=== PATIENT | male | born 1955 | race Caucasian/White ===

== ENCOUNTER 2019-11-15 11:01 | Day surgery (SDC) | payer MEDICARE, SELFPAY ==
[2019-11-15] VITALS (8 sets, daily range): BP systolic 116–140; BP diastolic 69–76; PULSE 85–95; RESP 12–16; TEMP 36.6–37.1; O2SAT 98–100; BMI 33.7
--- NOTE | 2019-11-15 06:01 | ECG_ITS ---
Measurements Intervals [place] Rate: 93 P: 94 [place]: 165 QRS: -11 QRSD: 107 T: 75 QT: 349 QTc: 435 Interpretive Statements ATRIAL FLUTTER/TACHYCARDIA BORDERLINE R WAVE PROGRESSION, ANTERIOR LEADS BORDERLINE ST-T WAVE ABNORMALITY- LATERAL LEADS ABNORMAL ECG Electronically Signed On 11-15-2019 13:49:52 PHYSICAL GEOGRAPHER by Remi Jara D.O.
--- NOTE | 2019-11-15 11:15 | SUR.PREOP ---
ARRIVES TO [facility] AT 1100 FOR SCHEDULED CARDIOVERSION W/ DR. YAN. EKG COMPLETED SHOWS AFLUTTER. ORIENTED TO ROOM, PLAN OF CARE. DENIES CP OR SOB. IV STARTED, LABS SENT, VS OBTAINED, CONSENT OBTAINED, SKIN PREPPED. WILL CONTINUE TO MONITOR.
[2019-11-15 11:46] LABS: Blood Urea Nitrogen 31 mg/dL (9-20); Calcium 9.7 mg/dL (8.4-10.2); Carbon Dioxide 22 mmol/L (22-30); Chloride 93 mmol/L (98-107); Estimated Glomerular Filt Rate 34; Glucose 384 mg/dL (75-110); Magnesium 1.8 mg/dL (1.6-2.3); Potassium 4.6 mmol/L (3.4-5.0); Sodium 133 mmol/L (137-145)
--- NOTE | 2019-11-15 12:14 | WPDMODSED ---
Moderate Sedation Note-Pt Data Patient Data Diagnosis: Atrial flutter Present Complaint: Generalized fatigue Procedure to be performed/Plan: DC cardioversion Allergies Allergy/AdvReac Type Severity Reaction Status Date / Time atorvastatin Allergy Unknown muscle Verified 07/05/19 17:00 aches ezetimibe Allergy Unknown muscle Verified 07/05/19 17:00 aches simvastatin [Vytorin] Allergy Unknown muscle Verified 07/05/19 17:00 aches ticagrelor [Brilinta] Allergy Unknown sob, Verified 07/05/19 17:00 breathing diffi No Known Allergies Allergy Unverified 04/25/19 22:55 Home Medications Medication Instructions Recorded Confirmed Type allopurinol 300 mg PO DAILY 11/15/19 11/15/19 History doxycycline hyclate [Vibramycin] 100 mg PO BID 11/15/19 11/15/19 History glimepiride [Amaryl] 4 mg PO BID 11/15/19 11/15/19 History levothyroxine [Tirosint] 100 mcg PO DAILY 11/15/19 11/15/19 History metformin 1,000 mg PO BID 11/15/19 11/15/19 History metoprolol tartrate [Lopressor] 25 mg PO Q12H 11/15/19 11/15/19 History rivaroxaban [Xarelto] 20 mg PO DAILY 11/15/19 11/15/19 History Current Medications: Active Medications Sodium Chloride (Normal Saline Iv) 1,000 mls @ 30 mls/hr IV CONT .Q24H ERIC Sedation/Anesthesia: No previous sedation/anesthesia problems (including family history). [facility] Family History Family History (Updated 03/19/18 @ 10:51 by DOCTOR UNKNOWN) Mother Diabetes mellitus Family history of cardiovascular disease Family history of malignant neoplasm of breast in first degree relative Father Patient's father is , Onset Age: 77 Malignant neoplasm of prostate Family history of lung cancer Other Hypertension Social History Social History Smoking status: Never smoker Alcohol intake: never Mod Sed Physical Exam Physical Exam Pre Procedural Exam: Normal: Appearance, Neck, Throat, Airway, Lungs, Heart Size, Heart Rhythm, Neuro Exam and Extremities and Variation: Heart Rate (Tachycardia) Hours since solid foods: 12 Hours since liquid intake: 12 Internal Medicine - PN: Obj Da Vital Signs Vital Signs: Vital Signs - 24 hr 11/15/19 12:01 Temperature 36.6 C Pulse Rate 95 Respiratory Rate 14 Blood Pressure 133/74 Pulse Oximetry 100 Meds/Results Medications: Active Medications Generic Name Dose Route Start Last Admin Trade Name Freq PRN Reason Stop Dose Admin Sodium Chloride 1,000 mls @ 30 mls/hr 11/15/19 06:05 Normal Saline Iv IV CONT .Q24H ERIC Labs CBC & Chem 7: 11/15/19 11:28 Labs: Laboratory Results - last 24 hr 11/15/19 11:28 Sodium 133 L Potassium 4.6 Chloride 93 L Carbon Dioxide 22 BUN 31 H Creatinine 2.00 H Estim Creat Clear Calc Not Reportable Estimated GFR 34 L Glucose 384 H Calcium 9.7 Magnesium 1.8 ASA Classification/Sedation ASA Classification/Sedation Risks: Risks, benefits and alternatives explained and patient/family accepted plan for sedation. Patient re-evaluated immediately prior to sedation.
--- NOTE | 2019-11-15 12:27 | P.PCNCC_ITS ---
Cardiac Cath Procedure Note Date of procedure:: 11/15/19 Performing physician:: Terence Carcamo MD Indication:: Persistent atrial flutter Brief clinical history:: 64-year-old patient with a history of atrial flutter diagnosed in the 2018. Patient was anticoagulated and recommended to undergo a cardioversion after 1 month. He was fearful of the procedure and elated office follow-up until recently. He is in a persistent pattern of atrial flutter. He now reports to be compliant with his anticoagulation and it was desirous of an attempt to restore sinus rhythm. Procedure Procedure performed:: DC cardioversion Sedation/Medication given:: Propofol given in a total dose of 70 mg IV push. Estimated blood loss:: No blood loss Procedure note:: Following sedation with propofol patient was counter shocked with 200 joules in a synchronized fashion x1 attempt with pentecostalism of normal sinus rhythm. Findings:: Successful uncomplicated DC cardioversion of atrial flutter to sinus rhythm Conclusion:: As above successful DC cardioversion
--- NOTE | 2019-11-15 12:38 | SUR.PHASEII ---
1225-PT INTO PHASE II RECOVERY. NO DISTRESS NOTED. AOX4. DROWSY. EKG PERFORMED. FOUND TO BE IN NSR AT BEDSIDE. WILL CONTINUE TO MONITOR.
--- NOTE | 2019-11-15 14:00 | SUR.PHASEII ---
END PHASE II RECOVERY. DRESSED AND READY FOR DISCHARGE HOME. DISCHARGE INSTRUCTIONS REVIEWED W/ PT. BY SANJIV SHEIKH RN. PT. VOICED UNDERSTANDING. DISCHARGED HOME, OUT VIA WC TO BROTHER'S WAITING CAR WITH ALL PERSONAL BELONGINGS AND DISCHARGE INSTRUCTIONS. MONITOR SR PRIOR TO DISCHARGE HOME.
== END 2019-11-15 14:00 | disposition home or self-care (01) ==
PROVIDERS: PCP Family Medicine; Visit Provider Specialist
PROC: 5A2204Z Restoration of Cardiac Rhythm, Single (ICD-10-PCS; principal; 2019-11-15 12:00)
DX: I48.92 Unspecified atrial flutter (principal); I25.10 Atherosclerotic heart disease of native coronary artery without angina pectoris; Z95.5 Presence of coronary angioplasty implant and graft; Z79.01 Long term (current) use of anticoagulants
CPT/HCPCS: 36415; 80048; 83735; 92960; 93005; J2704; J7040

== ENCOUNTER 2020-02-18 07:24 | Emergency (ER) | payer MEDICARE, SELFPAY ==
--- NOTE | ~2020-02-18 | XR_ITS ---
EXAMINATION: XR knee RT 3V DATE: 02/18/2020 08:54 INDICATION: Right knee pain after fall TECHNIQUE: Three views of the right knee are obtained. COMPARISON: None available FINDINGS: There are changes of total right knee arthroplasty with patellar resurfacing. There is no f racture, dislocation, or subluxation. A large chronic knee joint effusion is present which is slightl y increased in size. Subtle lucency is seen in the proximal tibia along the anterior undersurface of the prosthesis. IMPRESSION: 1. Chronic large knee joint effusion with slight increase in size. No fracture. 2. Subtle lucency in the anterior tibia along the undersurface of the prosthesis, consistent with par ticle disease or infection. Reviewed, dictated and finalized at location A. IMPRESSION: 1. Chronic large knee joint effusion with slight increase in size. No fracture. 2. Subtle lucency in the anterior tibia along the undersurface of the prosthesi s, consistent with particle disease or infection.
--- NOTE | ~2020-02-18 | CT_ITS ---
EXAMINATION: CT brain wo con INDICATION: Head injury COMPARISON: 01/25/2018 TECHNIQUE: Standard unenhanced head CT. The dose-length product (DLP) was 605.33 mGy-cm. The mA was a djusted according to patient size. Iterative reconstruction technique was employed. FINDINGS: There is a large right frontal scalp and right periorbital hematoma. There is no intracrani al hemorrhage, acute infarction, or abnormal mass lesion. The ventricles are normal. There is no abno rmal mass effect or midline shift. The monet-white matter differentiation is normal. The basal cistern s are patent. The orbits are normal. There is mild mucosal thickening of the paranasal sinuses. IMPRESSION: 1. Right frontal scalp and periorbital hematoma without acute intracranial abnormality. Reviewed, dictated and finalized at location A. IMPRESSION: 1. Right frontal scalp and periorbital hematoma without acute intracranial abno rmality.
--- NOTE | ~2020-02-18 | XR_ITS ---
EXAMINATION: XR knee LT 3V DATE: 02/18/2020 08:13 INDICATION: Left knee injury. TECHNIQUE: 3 views of left knee were obtained. COMPARISON: Left knee radiographs 01/25/2018 FINDINGS: There is a total left knee arthroplasty with patellar resurfacing. Tibia demonstrate 8 degr ees posterior angulation with respect to tibial component without change. No fracture. No periprosthe tic lucency to suggest loosening or infection. There is a small knee joint effusion. IMPRESSION: 1. Total left knee arthroplasty without change in alignment. 2. Small left knee joint effusion. Reviewed, dictated and finalized at location A.
[2020-02-18 07:28] VITALS: BP 162/101; PULSE 92; RESP 18; TEMP 36.7; O2SAT 100
--- NOTE | 2020-02-18 07:28 | ED.FALL ---
HPI - Fall General Chief Complaint: Fall Stated Complaint: fall - head injury Time Seen by Provider: 02/18/20 07:25 History of Present Illness HPI Narrative: Slipped and fell this morning. Struck his head in the fall. No LOC. Sustained abrasion to forehead. Moderate intensity GOMEZ. He is on xarelto. Also sustained abrasions to the hands bilaterally and the left knee. No syncope. Related Data Home Medications Medication Instructions Recorded Confirmed Tirosint 100 mcg PO DAILY 11/15/19 11/15/19 Xarelto 20 mg PO DAILY 11/15/19 11/15/19 allopurinol 300 mg PO DAILY 11/15/19 11/15/19 doxycycline hyclate [Vibramycin] 100 mg PO BID 11/15/19 11/15/19 glimepiride [Amaryl] 4 mg PO BID 11/15/19 11/15/19 metoprolol tartrate [Lopressor] 25 mg PO Q12H 11/15/19 11/15/19 Allergies Allergy/AdvReac Type Severity Reaction Status Date / Time No Known Allergies Allergy Verified 02/18/20 07:42 Review of Systems Review of Systems: All systems reviewed & are unremarkable except as noted in HPI and below Constitutional: Constitutional: Denies chills and Denies fever(s) Eyes: Eyes: Denies change in vision Cardiovascular: Cardiovascular: Denies chest pain Respiratory: Respiratory: Denies dyspnea Gastrointestinal: Gastrointestinal: Denies abdominal pain and Denies nausea Musculoskeletal: Musculoskeletal: Denies back pain Neurologic: Denies dizziness, Denies numbness and Denies weakness [facility] Past Medical History Medical History CAD (coronary artery disease) Chronic atrial fibrillation Essential (primary) hypertension History of cardioversion Hypertensive heart and chronic kidney disease with heart failure and stage 1 through stage 4 chronic kidney disease, or unspecified chronic kidney disease Hypothyroidism (acquired) Polycythemia Type 2 diabetes mellitus with diabetic neuropathy, unspecified Family History Family History Mother Diabetes mellitus Family history of cardiovascular disease Family history of malignant neoplasm of breast in first degree relative Father Patient's father is , Onset Age: 77 Malignant neoplasm of prostate Family history of lung cancer Other Hypertension Social History Social History Smoking status: Never smoker Alcohol intake: never Exam Const: General: no acute distress and alert Nutritional Appearance: well nourished Orientation/consciousness: patient oriented x3 HENMT: Other: 4x6 abrasion to forehead Eyes: Conjunctivae: conjunctivae normal Pupils: Equal, round and reactive pupils present EOM: EOMs intact bilaterally Resp: Effort & Inspection: normal respiratory effort Auscultation: clear to auscultation bilaterally Cardio: Rate: regular rate Rhythm: abnormal rhythm irregularly irregular Skin: Other: minor abrasions to bilateral hands and left knee. Neuro: General: patient oriented x3, moves all extremities, no focal motor deficits and CN's II-XI intact bilaterally Cranial nerves: Yes Nystagmus not present Speech: normal speech Course Vital Signs Vital signs: Vital Signs Temperature 36.7 C 02/18/20 07:28 Pulse Rate 92 02/18/20 07:28 Respiratory Rate 18 02/18/20 07:28 Blood Pressure 162/101 H 02/18/20 07:28 Pulse Oximetry 100 02/18/20 07:28 Temperature 36.7 C 02/18/20 07:28 Pulse Rate 94 02/18/20 09:31 Respiratory Rate 18 02/18/20 09:31 Blood Pressure 168/88 H 02/18/20 09:31 Pulse Oximetry 100 02/18/20 09:31 Procedures Joint Aspiration/Injection Joint Asp./Inject. 1: Side of body: right Joint Aspirated: knee Ultrasound Guidance: No Skin Prep: sterile prep and drape Local Anesthetic: lidocaine 1% Amount of anesthesia used (mL): 5 Fluid Obtained: bloody Total fluid obtained (mL): 2 Patient
--- NOTE | 2020-02-18 07:31 | PC.NURSE ---
Report to DONG Dooley.
[2020-02-18] MEDS: ACETAMINOPHEN 500 MG TABLET 1000 MG PO (08:33)
[2020-02-18 09:31] VITALS: BP 168/88; PULSE 94; RESP 18; O2SAT 100
--- NOTE | 2020-02-18 10:02 | PC.NURSE ---
at bedside to drain pts right knee
== END 2020-02-18 10:36 | disposition home or self-care (01) ==
PROVIDERS: Emergency Provider Emergency Medicine; PCP Family Medicine
DX: S00.81XA Abrasion of other part of head, initial encounter (principal); M25.461 Effusion, right knee; I48.20 Chronic atrial fibrillation, unspecified; Z79.01 Long term (current) use of anticoagulants; I25.10 Atherosclerotic heart disease of native coronary artery without angina pectoris; E11.22 Type 2 diabetes mellitus with diabetic chronic kidney disease; I12.9 Hypertensive chronic kidney disease with stage 1 through stage 4 chronic kidney disease, or unspecified chronic kidney disease; N18.9 Chronic kidney disease, unspecified; E03.9 Hypothyroidism, unspecified; W01.0XXA Fall on same level from slipping, tripping and stumbling without subsequent striking against object, initial encounter; D75.1 Secondary polycythemia
CPT/HCPCS: 20610; 70450; 73562; 99284; A9270; L0140

== ENCOUNTER 2020-05-19 15:24 | Outpatient (CLI) | payer MEDICARE, SELFPAY ==
[2020-05-19 16:07] LABS: CRP 5.5 mg/dL (<1.0)
[2020-05-19 16:30] LABS: Erythrocyte Sedimentation Rate 126 mm/hr (0-20)
== END 2020-05-19 15:25 | disposition home or self-care (01) ==
LOC: ANHLAB 15:30
PROVIDERS: PCP Family Medicine; Visit Provider Physician Assistant Surgical
DX: M25.561 Pain in right knee (principal)
CPT/HCPCS: 36415; 85652; 86140

== ENCOUNTER 2020-11-20 17:12 | Outpatient (CLI) | payer MEDICARE, SELFPAY | END 2020-11-20 17:13 | disposition home or self-care (01) | LOC: ANHCOVIDVC 17:12 | PROVIDERS: PCP Family Medicine | DX: Z23 Encounter for immunization (principal) | CPT/HCPCS: 0001A; 91300 ==

== ENCOUNTER 2020-12-11 17:04 | Outpatient (CLI) | payer MEDICARE, SELFPAY | END 2020-12-11 17:05 | disposition home or self-care (01) | LOC: ANHCOVIDVC 17:04 | PROVIDERS: PCP Family Medicine | DX: Z23 Encounter for immunization (principal) | CPT/HCPCS: 0002A; 91300 ==

== ENCOUNTER 2022-10-11 09:59 | Inpatient (IN) | payer MEDICARE, SELFPAY ==
[2022-10-11] VITALS (12 sets, daily range): BP systolic 122–169; BP diastolic 61–120; PULSE 117–130; RESP 20–30; TEMP 36.4–38.1; O2SAT 95–100; BMI 35.6
--- NOTE | ~2022-10-11 | CT_ITS ---
EXAMINATION: CT abdomen pelvis wo con DATE: 10/11/2022 18:21 INDICATION: Sacral wound. TECHNIQUE: Computed tomography (CT) of the abdomen and pelvis was performed without intravenous contr ast. Automated exposure control and iterative reconstruction technique were employed. The dose-length product was 1739.03 mGy-cm. COMPARISON: CT abdomen and pelvis 04/25/2019 FINDINGS: The visualized portions of the lung bases demonstrate mild atelectasis. No pleural effusion . The heart size is normal. There are coronary artery calcifications. No pericardial effusion. There is mild bilateral gynecomastia. The liver and spleen are normal. There are gallstones in the gallblad moise, which is normal in size. The pancreas, adrenal glands, and left kidney are normal. There is an 8 mm cyst in right kidney. The prostate is severely enlarged. The bladder is decompressed by a Haile c atheter. There are bilateral inguinal hernias containing fat. There are no dilated loops of bowel. Th e appendix is normal. There is chronic mild bilateral pelvic lymphadenopathy, likely reactive. There is no free intraperitoneal fluid. There is moderate lumbar spondylosis. There are bridging endplate o steophytes at multiple levels in the thoracic spine, consistent with diffuse idiopathic skeletal hype rostosis (DISH). There is left inferior buttock skin thickening and subcutaneous fat stranding, consi stent with inflammation. No abscess. There is no sacral osteomyelitis. IMPRESSION: 1. Left inferior buttock skin thickening and subcutaneous fat stranding, consistent with inflammation . No abscess or osteomyelitis. Reviewed, dictated and finalized at location A. S MARKETING DIRECTOR IMPRESSION: 1. Left inferior buttock skin thickening and subcutaneous fat stranding, consis tent with inflammation. No abscess or osteomyelitis.
--- NOTE | ~2022-10-11 | XR_ITS ---
Portable chest x-ray Comparison: 05/20/2019 Clinical History: Weakness Findings: Lungs are clear, without focal consolidation or pleural effusion. Cardiomediastinal silho uette is stable. Bones and soft tissues are unremarkable. Impression: Clear lungs. Reviewed, dictated and finalized at location . MUNITION ASSEMBLY I LABORER Impression: Clear lungs.
--- NOTE | ~2022-10-11 | US_ITS ---
EXAMINATION: US venous doppler [facility] DATE: 10/11/2022 16:30 INDICATION: Lower limb edema. TECHNIQUE: Grayscale ultrasound images without and with compression and Doppler ultrasound images of the bilateral lower extremity veins were obtained. COMPARISON: Ultrasound 05/21/2019 FINDINGS: The visualized portions of right common femoral vein, profunda (deep) femoral vein, femoral vein, pop liteal vein, posterior tibial veins, and greater saphenous vein outflow are patent. The visualized portions of left common femoral vein, profunda femoral vein, femoral vein, popliteal v ein, peroneal veins, posterior tibial veins, and greater saphenous vein outflow are patent. IMPRESSION: 1. No deep venous thrombosis. Reviewed, dictated and finalized at location A. STANT DIRECTOR OF NURSING
--- NOTE | ~2022-10-11 | CT_ITS ---
EXAMINATION: CT LE LT wo con DATE: 10/11/2022 18:39 INDICATION: Left posterior thigh wound. TECHNIQUE: Computed tomography (CT) of the left lower limb was performed without intravenous contrast . Automated exposure control and iterative reconstruction technique were employed. The dose-length pr oduct was 2366.87 mGy-cm. COMPARISON: Left knee radiographs 02/18/2020 FINDINGS: There is extensive subcutaneous edema in the left lower limb. There is an arthroplasty comp onent at the distal femur. The arthroplasty components at the patella and proximal tibia have been re moved. There is bone cement in the proximal tibia and distal femoral medullary space. There is a larg e knee joint effusion containing foci of gas. IMPRESSION: 1. Left knee arthroplasty with explanted components and bone cement spacers. 2. Large knee joint effusion containing foci of gas. 3. Widespread subcutaneous edema in the left lower limb. Reviewed, dictated and finalized at location A. FORCE PLANNER
--- NOTE | ~2022-10-11 | CT_ITS ---
EXAMINATION: CT brain wo con DATE: 10/11/2022 18:21 INDICATION: Confusion. TECHNIQUE: Computed tomography (CT) of the head was performed without intravenous contrast. The mA wa s adjusted according to patient size. Iterative reconstruction technique was employed. The dose-lengt h product was 681.00 mGy-cm. COMPARISON: Head CT 02/18/2020 FINDINGS: There are scattered areas of low attenuation in the cerebral white matter. There is no intr acranial hemorrhage, acute infarction, or abnormal intracranial mass lesion. The ventricles are eva l in size. There is mild mucosal thickening in the paranasal sinuses. There are likely changes of ocu lar lens replacement surgeries. There is a small left mastoid effusion. IMPRESSION: 1. Worsened moderate nonspecific cerebral white matter disease, which likely represents chronic small vessel ischemic disease. Reviewed, dictated and finalized at location A. ER TENDER IMPRESSION: 1. Worsened moderate nonspecific cerebral white matter disease, which likely re presents chronic small vessel ischemic disease.
--- NOTE | 2022-10-11 10:39 | ECG_ITS ---
Measurements Intervals [place] Rate: 128 P: -72 [place]: 138 QRS: -36 QRSD: 106 T: 60 QT: 309 QTc: 452 Interpretive Statements ATRIAL FLUTTER/TACHYCARDIA WITH RAPID VENTRICULAR RESPONSE LEFT AXIS DEVIATION CANNOT RULE OUT SEPTAL INFARCT, AGE INDETERMINATE MINIMAL Q WAVES- HIGH LATERAL LEADS BASELINE ARTIFACT- I, II, III, AVL, V1-V2 ABNORMAL ECG COMPARED TO ECG 11/15/2019 11:23:40 LEFT-AXIS DEVIATION NOW PRESENT Electronically Signed On 10-11-2022 12:05:42 [employer] CENTER MARKER by Remi Jara D.O.
--- NOTE | 2022-10-11 10:39 | ED.GENADULT ---
HPI - General Adult General Chief complaint: Unspecified Stated complaint: not able to take care of self Time Seen by Provider: 10/11/22 10:04 History of Present Illness HPI narrative: Patient is a 67-year-old male with a history of afib on xarelto, hypertension, hypothyroidism, diabetes presenting with inability to care for self. Patient states that he has had problems with both of his knees for the last year. States he has had numerous operations and different antibiotics for his left knee. Patient states that he has been living at home for the last several months and his brother is there to help him. States that his brother does not really help him. States he is unable to ambulate or care for self so he called EMS. On arrival here, patient was covered in fecal matter and urine. He complains that he feels bloated and he has chronic left knee pain but he otherwise denies headache, numbness or weakness, chest pain, shortness of breath, abdominal pain, vomiting. Related Data Home Medications Medication Instructions Recorded Confirmed doxycycline hyclate 100 mg capsule 100 mg PO BID 11/15/19 03/28/21 (Vibramycin) Allergies Allergy/AdvReac Type Severity Reaction Status Date / Time No Known Allergies Allergy Verified 06/12/21 14:40 Review of Systems Review of Systems: All systems reviewed & are unremarkable except as noted in HPI and below PMFSH Past Medical History Medical History CAD (coronary artery disease) Chronic atrial fibrillation Essential (primary) hypertension History of cardioversion History of cardioversion Hypertensive heart and chronic kidney disease with heart failure and stage 1 through stage 4 chronic kidney disease, or unspecified chronic kidney disease Hypothyroidism (acquired) Polycythemia Type 2 diabetes mellitus with diabetic neuropathy, unspecified Surgical History Surgical History H/O arthroscopic knee surgery History of bilateral knee replacement History of carpal tunnel release History of coronary angioplasty with insertion of stent History of revision of total replacement of knee joint History of total right knee replacement August 2020 Family History Family History Mother Diabetes mellitus Family history of cardiovascular disease Family history of malignant neoplasm of breast in first degree relative Father Patient's father is , Onset Age: 77 Malignant neoplasm of prostate Family history of lung cancer Other Hypertension Social History Social History Smoking status: Never smoker Alcohol intake: never Exam Narrative: GENERAL: Elderly male, in no acute distress, strong smell of urine in the room HEAD: Normocephalic, atraumatic. EYES: PERRLA and EOMI. ENT: Nares clear, no rhinorrhea or epistaxis. Mucous membranes moist. NECK: Supple. CHEST: Clear to auscultation. No respiratory distress. HEART: Tachycardic, regular rhythm no murmur heard. Normal peripheral pulses. ABDOMEN: Soft, nontender, nondistended, EXTREMITIES: Normal range of motion. Healed incisions over bilateral knees, dusky toes on the left, no sensory deficits, dopplerable pulses bilaterally SKIN: Warm, dry, no rash. NEURO: No focal deficits. Alert and oriented x3. PSYCH: Normal mood and affect. Medical Decision Making MDM Narrative Medical decision making narrative: Patient is a 67-year-old male presenting with inability to care for himself. Patient is tachycardic, otherwise vitals are within normal limits. Exam is remarkable for the above. Lab Data Labs: Lab Results 10/11/22 Range/Units 10:35 Influenza A (RT-PCR) Pending Influenza B (RT-PCR) Pending SARS-CoV-2 RNA (RT-PCR) Pending Discharge Plan Discharge Prescriptions: No Action allopurinol 300 mg tablet 300 mg PO DAILY Qty: 90 3RF levothyroxine 100 mcg tablet 100 mcg PO DAILY Qty: 90 3RF metoprolol tartrate [Lopressor] 50 mg tablet 25 mg PO Q12H Qty: 90 1RF Xarelto 20 mg tablet 20 mg PO DAILY Qty: 90 3RF (DME) blood-glucose meter Kit See Rx Instructions .ROUTE .MEDSUPPLY Qty: 1 0RF Rx Instructions: one touch glucose meter test twice daily doxycycline hyclate [Vibramycin] 100 mg Capsule 100 mg PO BID metformin 1,000 mg tablet See Rx Instructions .ROUTE .COMPLEX Qty: 180 3RF Dose Instruction: TAKE 1 TABLET BY MOUTH TWICE DAILY Rx Instructions: TAKE 1 TABLET BY MOUTH TWICE DAILY glimepiride 4 mg tablet See Rx Instructions .ROUTE .COMPLEX Qty: 180 1RF Dose Instruction: TAKE 1 TABLET BY MOUTH TWICE DAILY Rx Instructions: TAKE 1 TABLET BY MOUTH TWICE DAILY (DME) blood sugar diagnostic Strip See Rx Instructions .ROUTE .MEDSUPPLY Qty: 100 3RF Rx Instructions: one touch test strips test twice daily Follow-up/Referrals: Conchita,MD Jonathan [Primary Care Provider] -
[2022-10-11 11:07] LABS: Appearance Urine Clear (Clear); Bilirubin Urine Negative (Negative); Blood Urine 1+ (Negative); Color Urine Yellow (Yellow); Glucose Urine UA Trace mg/dL (Negative); Ketones Urine Negative (Negative); Leukocyte Esterase Ur 1+ LEU/UL (Negative); Nitrate Urine Negative (Negative); Protein Urine 2+ mg/dL (Negative); Specific Grav Ur 1.015 (1.001-1.035); Urobilinogen Urine 0.2 mg/dL (<2.0)
[2022-10-11 11:13] LABS: Add Urine Microscopic? YES; Bacteria Urine Trace /hpf; RBC Urine 0-2 /hpf (0-2); WBC Urine 31-50 /hpf
[2022-10-11 11:15] LABS: Lactic Acid Reflex 3.3 mmol/L (0.7-2.0)
[2022-10-11 11:16] LABS: Alanine Aminotransferase 27 U/L (6-50); Albumin Level 3.9 g/dL (3.5-5.1); Alkaline Phosphatase 118 U/L (38-126); Anion Gap 9 mmol/L (8-16); Aspartate Amino Transferase 43 U/L (17-59); Bilirubin,Total 0.9 mg/dL (0.2-1.3); Blood Urea Nitrogen 57 mg/dL (9-20); Calcium 9.3 mg/dL (8.4-10.2); Carbon Dioxide 24 mmol/L (22-30); Chloride 90 mmol/L (98-107); Estimated CRCL calculation 47 ml/min; Estimated Glomerular Filt Rate 35; Glucose 306 mg/dL (65-110); Potassium 4.6 mmol/L (3.4-5.0); Sodium 123 mmol/L (137-145)
[2022-10-11 11:19] LABS: Influenza A QL RT-PCR Negative (Negative); Influenza B QL RT-PCR Negative (Negative); SARS-CoV-2 RNA PCR Negative
[2022-10-11 11:19] LABS: Basophils Absolute Auto 0.1 K/mm3 (0.0-0.1); Basophils Percent Auto 0.5 % (0.2-1.2); Eosinophils Percent Auto 0.1 % (0-4.4); Hematocrit 41.5 % (42.0-52.0); Hemoglobin 13.6 g/dL (14.0-18.0); Immature Granulocyte Absolute 0.45 K/mm3 (0.00-0.031); Immature Granulocyte Percent A 2.7 % (0-0.5); Lymphocytes Percent Auto 6.1 % (18.3-44.2); Mean Corpuscular HGB Conc 32.8 g/dl (32-36); Mean Corpuscular Hemoglobin 27.5 pg (26-34); Mean Corpuscular Volume 83.8 fl (80-100); Mean Platelet Volume 10.5 fl (7.4-10.4); Monocytes Percent Auto 5.8 % (2.6-8.5); Neutrophils Percent Auto 84.8 % (45.5-73.1); Platelet Count Result 466 k/mm3 (150-375); Red Blood Count 4.95 M/mm3 (4.6-6.20); Red Cell Distribution Width 15.7 % (11.5-14.5); White Blood Count 16.5 K/mm3 (4.5-10.0)
[2022-10-11] MEDS: SODIUM CHLORIDE 0.9% IV 1,000 ML 999 ML IV CONT ×2 (11:40→11:50)
[2022-10-11] MEDS: cefTRIAXone 2 GM in SODIUM CHLORIDE 0.9% IV 100 ML 200 ML IVPB (11:45)
[2022-10-11 11:58] LABS: Creatine Kinase 141 U/L (55-170)
[2022-10-11 12:07] LABS: Creatinine Urine 84.7 mg/dL
[2022-10-11 12:09] LABS: Sodium Urine Random 21 meq/L
[2022-10-11 14:04] LABS: Reflex Lactic Acid Yes or No Add Lactic
[2022-10-11 14:44] LABS: Lactic Acid 2.1 mmol/L (0.7-2.0)
[2022-10-11 17:09] LABS: Glucose Point of Care 262 mg/dl (65-105)
--- NOTE | 2022-10-11 18:05 | P.HP_ITS ---
H&P: HPI History of Present Illness Date/Time: 10/11/22 18:05 Chief Complaint: ?Not able to care for self.? Narrative: This is a 67-year-old male with paroxysmal atrial fibrillation on chronic anticoagulation, hypertension, coronary artery disease, hypothyroidism, type 2 diabetes mellitus, chronic kidney disease, and history of MSSA infection who presented to the emergency department via EMS from home with reports that he is unable to care for himself (per family report). The following history is obtained from the patient, who is a fair historian (he seems depressed with a flat affect and does not offer a lot of information). Additional information is obtained from the triage and ED physician notes and consultation notes scanned into the EMR from outside facilities. 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 It looks like he has a history of missed appointments with his surgeon at [facility] and the last note that I see from them is from 05/16/2022. At that time he was scheduled to have reimplantation of hardware however the case was canceled due to multiple bed sores. Since that time his brother has been staying at home with him but it does not sound as though the patient is accepting much help. He spends a majority of his time in bed, is unable to ambulate, has become increasingly weak, and is seemingly choosing self neglect. Family members have been trying to get him to come to the hospital though he has continued to refuse however today acquiesced. He arrived in clothes which were soiled with urine and feces. He is running a low-grade temperature of 100.6?. Heart rate has been in the low 100s to 120s and appears to be sinus tachycardia however at times it appears to be atrial flutter. Blood pressures have been stable in the 140s to 150s systolic. Labs were significant for WBC of 16.5, BUN 57, creatinine 1.90, sodium 123, CK 141, lactic acid 3.3, glucose 306. Urine was positive for 1+ leukocyte esterase, 31 to 50 WBC, and trace bacteria. He was admitted to the IMU with a working diagnosis of sepsis presumably due to UTI. At the time my evaluation is difficult to get the patient to voice his complaints. Ultimately he was able to tell me that he has been having left knee pain for several months though it has been worse in the last few days. He describes the pain as sharp and stabbing, located in the left knee though it radiates somewhat throughout the entire left leg. Appetite has also been poor. He denies paresthesias, skin color, and temperature changes in the left leg. No nausea, vomiting, diarrhea, or dysuria. Review of Systems Review of Systems: Twelve systems were reviewed and are negative except for as per HPI. [facility] Past Medical History Medical History (Updated 10/11/22 @ 23:14 by Adeola Polk PA-C) Benign prostatic hyperplasia Chronic anticoagulation Chronic atrial fibrillation Coronary artery disease Degenerative joint disease Essential (primary) hypertension Gout Hypothyroidism (acquired) Methicillin susceptible Staphylococcus aureus infection Mixed hyperlipidemia Obstructive sleep apnea Does not use CPAP. Polycythemia Type 2 diabetes mellitus with diabetic neuropathy, unspecified Surgical History Surgical History (Updated 10/11/22 @ 22:57 by Adeola Polk PA-C) History of arthroscopy of both knees History of bilateral cataract extraction History of bilateral knee replacement History of cardioversion History of carpal tunnel release History of coronary angioplasty with insertion of stent History of revision of total replacement of knee joint Family History Family History Mother Diabetes mellitus Family history of cardiovascular disease Family history of malignant neoplasm of breast in first degree relative Father Patient's father is , Onset Age: 77 Malignant neoplasm of prostate Family history of lung cancer Other Hypertension Social History Social History Social History: Surrogate medical decision maker: Code status: Full code. Smoking status: Never smoker Second hand tobacco smoke exposure: Yes Alcohol intake: never Substance use: never Lack of Transportation: YES Lack of Food: Never True Current Housing: I Have Housing Concerned About Future Housing: No Difficulty Paying Gas/Electric Bills: No Difficulty Paying for Meds: No Currently Unemployed: No Education: Trade/Vocational Certificate Difficulty w/ Childcare or Family Care: No Additional living arrangements comments: Patient lives in his own home. Brother has been staying with him recently. Additional occupation/education comments: Retired from [employer]. Spiritual care concerns: No Meds Home Medications and Allergies Home Medications Medication Instructions Recorded Confirmed Type blood-glucose meter #1 ea 03/28/21 10/11/22 Rx allopurinol 300 mg tablet 300 mg PO DAILY #90 tabs 06/12/21 10/11/22 Rx levothyroxine 100 mcg tablet 100 mcg PO DAILY #90 tabs 06/12/21 10/11/22 Rx metoprolol tartrate 50 mg tablet 25 mg PO Q12H #90 tabs 06/12/21 10/11/22 Rx (Lopressor) rivaroxaban 20 mg tablet (Xarelto) 20 mg PO DAILY #90 tabs 06/12/21 10/11/22 Rx glimepiride 4 mg tablet See Rx Instructions .Route 08/23/22 10/11/22 Rx .COMPLEX #180 tabs metformin 1,000 mg tablet See Rx Instructions .Route 08/23/22 10/11/22 Rx .COMPLEX #180 tabs blood sugar diagnostic #100 ea 08/29/22 10/11/22 Rx Allergies Allergy/AdvReac Type Severity Reaction Status Date / Time No Known Allergies Allergy Verified 06/12/21 14:40 Vital Signs Vital Signs - 24 hr 10/11/22 10:27 10/11/22 10:44 10/11/22 10:47 Temperature 97.6 F Pulse Rate 118 H 127 H Respiratory Rate 28 H 28 H Blood Pressure 152/120 H Pulse Oximetry 100 Oxygen Delivery Room Air 10/11/22 11:40 10/11/22 12:35 Temperature Pulse Rate 126 H 127 H Respiratory Rate 24 H 29 H Blood Pressure 151/102 H 169/83 H Pulse Oximetry 100 100 Oxygen Delivery Exam Narrative: General: Ill-appearing male in the semi-Baires position in bed. Weight: 126.1 kg. BMI: 35.7. HEENT: PERRL, EOMI. Sclera anicteric. Tacky mucous membranes. Oropharynx crowded. Neck: Supple. Limited due to neck circumference. Respiratory: Mildly tachypneic. Appears in no acute respiratory distress. Lungs are clear to auscultation bilaterally. Cardiovascular: Tachycardic with S1-S2. No significant murmur. Gastrointestinal: Abdomen is soft, obese, nontender, and nondistended with positive bowel sounds. Skin: Warm and dry. Superficial maceration and breakdown of the buttocks. There is some hyperpigmentation in this area as well. There is a fairly large skin tear on the left posterior thigh several cm above the popliteal space. No crepitus. Toenails are thickened yellow. Chronic skin changes of the lower legs bilaterally. Extremities: No cyanosis or clubbing. Bilateral lower extremity pitting and nonpitting edema, left greater than right. Musculoskeletal: Left knee is edematous and warm and tender to touch. Patient complains pain with palpation over the anterior aspect of the left knee. He may no attempt to move the knee. He is neurovascularly intact throughout the left leg. Neurological: Alert and oriented x4. Cranial nerves 2-12 are grossly intact. Speech is clear. Generalized weakness without focal findings. He put minimal effort into the exam. Psychiatric: Depressed mood and flat affect. Poor eye contact. H&P: Results Labs Labs: Short CBC 10/11/22 Range/Units 10:59 WBC 16.5 H (4.5-10.0) K/mm3 Hgb 13.6 L (14.0-18.0) g/dL Hct 41.5 L (42.0-52.0) % Plt Count 466 H (150-375) k/mm3 BMP 10/11/22 10:59 Sodium 123 L Potassium 4.6 Chloride 90 L Carbon Dioxide 24 BUN 57 H D Creatinine 1.90 H Glucose 306 H Calcium 9.3 Cardiac Enzymes 10/11/22 Range/Units 10:59 Total Creatine Kinase 141 (55-170) U/L Liver Function 10/11/22 Range/Units 10:59 Total Bilirubin 0.9 (0.2-1.3) mg/dL AST 43 (17-59) U/L ALT 27 (6-50) U/L Alkaline Phosphatase 118 (38-126) U/L Albumin 3.9 (3.5-5.1) g/dL Urine 10/11/22 Range/Units 10:59 Urine Color Yellow (Yellow) Urine Appearance Clear (Clear) Urine pH 7.0 (5.0-9.0) Ur Specific [place]ushing 1.015 (1.001-1.035) Urine Protein 2+ H (Negative) mg/dL Urine Glucose (UA) Trace H (Negative) mg/dL Impressions Chest X-Ray 10/11/22 11:27 Impression: 1. Clear lungs. Venous Doppler Study 01/20/23 16:31 IMPRESSION: 1. No deep venous thrombosis. Head CT 10/11/22 18:30 IMPRESSION: 1. Worsened moderate nonspecific cerebral white matter disease, which likely represents chronic small vessel ischemic disease. Abdomen/Pelvis CT 10/11/22 18:34 IMPRESSION: 1. Left inferior buttock skin thickening and subcutaneous fat stranding, consistent with inflammation. No abscess or osteomyelitis. Lower Extremity CT 10/11/22 18:48 IMPRESSION: 1. Left knee arthroplasty with explanted components and bone cement spacers. 2. Large knee joint effusion containing foci of gas. 3. Widespread subcutaneous edema in the left lower limb. *Imaging and labs were personally reviewed. Assessment and Plan Assessment and plan (1) Sepsis: Code(s): A41.9 - Sepsis, unspecified organism Status: Acute Assessment and Plan: Present on admission and supported by fever, tachycardia, leukocytosis, and lactic acidosis in the setting of left prosthetic knee joint infection. Lactic acid level has improved with IV fluid boluses. Blood pressures have been stable. Blood cultures pending. (2) Infection of prosthetic left knee joint: Code(s): T84.54XA - Infection and inflammatory reaction due to internal left knee prosthesis, initial encounter Status: Acute Assessment and Plan: Patient has a history of MSSA periprosthetic joint infections. He has been empirically started on broad-spectrum antibiotics with cefepime and vancomycin. Blood cultures pending. Call placed to [facility] transfer center as this has been followed by orthopedic surgeon Dr. Gerry Bustamante. (3) Acute kidney injury superimposed on chronic kidney disease: Code(s): N17.9 - Acute kidney failure, unspecified; N18.9 - Chronic kidney disease, unspecified Status: Acute Assessment and Plan: Most likely due to a combination of dehydration from hypovolemia given poor oral intake and possibly ATN from sepsis. Haile catheter inserted in the ED without evidence of urinary retention. Continue judicious IV fluid rehydration with close monitoring of I/O, volume status, and renal function. Avoid nephrotoxic agents. If no improvement with fluids alone a further workup will need to be pursued. (4) Dehydration: Code(s): E86.0 - Dehydration Status: Acute Assessment and Plan: Continue judicious hydration as detailed above. (5) Atrial tachycardia: Code(s): I47.1 - Supraventricular tachycardia Status: Acute Assessment and Plan: At times patient appears to be in a sinus tachycardia however he may very well be in atrial flutter. It does not sound as though he took his home medications today and he will be given his metoprolol tartrate this evening which will hopefully slow down the rate. Tachycardia is likely due to a combination of sepsis and dehydration. Pulmonary embolism is unlikely. (6) Hyponatremia: Code(s): E87.1 - Hypo-osmolality and hyponatremia Status: Acute Assessment and Plan: Sodium is 126 when corrected for glucose. He looks dry on exam and by history. Continue judicious IV fluid rehydration and monitor sodium closely to ensure it is correcting appropriately. TSH, urine and serum osmolalities, and urine sodium/creatinine pending. (7) Chronic anticoagulation: Code(s): Z79.01 - exterminator (current) use of anticoagulants Status: Acute Assessment and Plan: Hold Xarelto as he will likely need washout of the infected joint. (8) Type 2 diabetes mellitus with hyperglycemia: Code(s): E11.65 - Type 2 diabetes mellitus with hyperglycemia Status: Acute Assessment and Plan: Glucose was 306 on arrival today. He is no longer on insulin that I can see. Initiate sliding scale insulin, Accu-Cheks, and hypoglycemic protocol. Check hemoglobin A1c. He will need tight glucose control to promote wound healing. Plan MEDICAL DECISION MAKING NARRATIVE History obtained from: Patient, triage and ED physician notes. History from independent sources: None. External chart review: Extensive review of consultations from [facility]. New problems addressed: Sepsis, infected left knee prosthetic joint, acute/chronic kidney injury, hyponatremia, hyperglycemia. Chronic illnesses addressed: Type 2 diabetes mellitus, hypertension, chronic anticoagulation. Independent interpretation of studies: Labs and imaging/report were personally reviewed. Discussion of management with other providers: [facility] regarding transfer. Comorbidities complicating care: Patient seems to be neglecting self. Diagnostic tests considered but not ordered: None. Shared decision making: Multiple discussions had with the patient and he did eventually agree with she transfer to [place] for further management and probable surgical treatment for the infected knee. Risk of complication: Progression of sepsis, loss of limb, should this go untreated. Quality VTE Prophylaxis VTE prophylaxis: mechanical ordered If No VTE Prophylaxis Answer both mechanical and pharmacologic: Reason no pharmacologic proph: medical contraindication (Will likely require surgery.)
--- NOTE | 2022-10-11 19:40 | ADMGEN ---
1909---This patient, Ganesh Gonzales, was admitted to IMU Room 231-01 @ 1850. Patient oriented to hospital policies and general routines including ID bracelet, bed and alarms, visiting hours, pain management, procedures, bathroom and other care routines, personal items, smoking policy, room service/diet, and visiting hours. Temp 100.6 - monitor ST 120's - BP 145/68-Respirations @28 non labored- spo2 100% on room air- pt resting with eyes closed- pt slow to respond to questions - but answers appropriate to simple questions- oriented X 3. No family with pt from ER
[2022-10-11 20:07] LABS: Anion Gap 10 mmol/L (8-16); Blood Urea Nitrogen 53 mg/dL (9-20); Calcium 8.1 mg/dL (8.4-10.2); Carbon Dioxide 16 mmol/L (22-30); Chloride 97 mmol/L (98-107); Estimated CRCL calculation 56 ml/min; Estimated Glomerular Filt Rate 43; Glucose 250 mg/dL (65-110); Potassium 4.4 mmol/L (3.4-5.0); Sodium 123 mmol/L (137-145)
--- NOTE | 2022-10-11 21:11 | PC.NURSE ---
Patient refuses transfer to [place] at this time. Advised patient that per Adeola STYLES that is he does not transfers his condition could deteriorate to the possibility of . Patient answers I dont care . Asked patient if he really didn't care, does he want to a don not resuscitate, and he states no . Patient alert and oriented 2-3. Adeola STYLES informed of conversation. She states she will talk to him later, but if he doesn't want transfer she will order antibiotics and a Angie consult.
[2022-10-11 21:12] LABS: Glucose Point of Care 267 mg/dl (65-105)
--- NOTE | 2022-10-11 21:47 | PC.NURSE ---
patient states he lives with his brother Petey. Message left to call [phone] on home answering machine.
[2022-10-11 22:36] LABS: Hemoglobin A1C 6.8 % (<5.7)
[2022-10-11] MEDS: SODIUM CHLORIDE 0.9% IV 1,000 ML 125 ML IV CONT (23:43)
[2022-10-11 23:54] LABS: Anion Gap 9 mmol/L (8-16); Blood Urea Nitrogen 52 mg/dL (9-20); Calcium 8.3 mg/dL (8.4-10.2); Carbon Dioxide 19 mmol/L (22-30); Chloride 95 mmol/L (98-107); Estimated CRCL calculation 50 ml/min; Estimated Glomerular Filt Rate 38; Glucose 318 mg/dL (65-110); Potassium 4.5 mmol/L (3.4-5.0); Sodium 123 mmol/L (137-145)
[2022-10-12] VITALS (13 sets, daily range): BP systolic 127–148; BP diastolic 59–70; PULSE 88–110; RESP 18–20; TEMP 36.6–37.4; O2SAT 95–100
[2022-10-12 05:05] LABS: Hematocrit 37.1 % (42.0-52.0); Hemoglobin 12.1 g/dL (14.0-18.0); Mean Corpuscular HGB Conc 32.6 g/dl (32-36); Mean Corpuscular Hemoglobin 27.9 pg (26-34); Mean Corpuscular Volume 85.5 fl (80-100); Mean Platelet Volume 10.3 fl (7.4-10.4); Platelet Count Result 317 k/mm3 (150-375); Red Blood Count 4.34 M/mm3 (4.6-6.20); Red Cell Distribution Width 15.5 % (11.5-14.5); White Blood Count 7.9 K/mm3 (4.5-10.0)
[2022-10-12 05:28] LABS: Alanine Aminotransferase 26 U/L (6-50); Albumin Level 3.2 g/dL (3.5-5.1); Alkaline Phosphatase 91 U/L (38-126); Anion Gap 8 mmol/L (8-16); Aspartate Amino Transferase 54 U/L (17-59); Bilirubin,Total 0.8 mg/dL (0.2-1.3); Blood Urea Nitrogen 49 mg/dL (9-20); Calcium 8.3 mg/dL (8.4-10.2); Carbon Dioxide 18 mmol/L (22-30); Chloride 97 mmol/L (98-107); Estimated CRCL calculation 56 ml/min; Estimated Glomerular Filt Rate 43; Glucose 274 mg/dL (65-110); Magnesium 2.3 mg/dL (1.6-2.3); Potassium 4.8 mmol/L (3.4-5.0); Sodium 123 mmol/L (137-145)
--- NOTE | 2022-10-12 06:43 | PC.NURSE ---
Attempted to call report on patient to Josiah. Josiah refusing to take report until after 0700. Explained that this was the charge nurse calling, and told to call after seven again.
[2022-10-12 08:15] LABS: Glucose Point of Care 279 mg/dl (65-105)
[2022-10-12] MEDS: INSULIN ASPART (*BKC) 100 UNITS/ML SUB-Q ×2 (08:20→12:49)
[2022-10-12] MEDS: METOPROLOL TARTRATE 25 MG TABLET PO (09:25)
[2022-10-12] MEDS: LEVOTHYROXINE SODIUM 100 MCG TABLET PO (09:25)
--- NOTE | 2022-10-12 09:36 | P.PNIM_ITS ---
Progress Note: A&P Assessment and Plan (1) Sepsis: Code(s): A41.9 - Sepsis, unspecified organism Status: Acute Assessment and Plan: Present on admission and supported by fever, tachycardia, leukocytosis, and la ctic acidosis in the setting of left prosthetic knee joint infection. * Lactic acid on arrival 3.3 * Lactic acid level trending down with IV fluid boluses. * Blood pressures have been stable. * Blood cultures no growth to date * Urine culture pending 10/12/22 * White blood cell count within normal limits (2) Infection of prosthetic left knee joint: Code(s): T84.54XA - Infection and inflammatory reaction due to internal left knee prosthesis, initial encounter Status: Acute Assessment and Plan: Patient has a history of MSSA periprosthetic joint infections. * Broad-spectrum antibiotics with cefepime and vancomycin. * Blood cultures no growth to date * Call placed to [facility] transfer center as this has been followed by orthopedic surgeon Dr. Gerry Bustamante. (3) Acute kidney injury superimposed on chronic kidney disease: Code(s): N17.9 - Acute kidney failure, unspecified; N18.9 - Chronic kidney disease, unspecified Status: Acute Assessment and Plan: Most likely due to a combination of dehydration from hypovolemia given poor oral intake and possibly ATN from sepsis. * Haile catheter inserted in the ED without evidence of urinary retention. * Continue judicious IV fluid rehydration with close monitoring of I/O, volume status, and renal function. * Avoid nephrotoxic agents. * If no improvement with fluids alone a further workup will need to be pursued. (4) Dehydration: Code(s): E86.0 - Dehydration Status: Acute Assessment and Plan: Continue judicious hydration as detailed above. (5) Atrial tachycardia: Code(s): I47.1 - Supraventricular tachycardia Status: Acute Assessment and Plan: At times patient appears to be in a sinus tachycardia however he may very well be in atrial flutter. * Tachycardia is likely due to a combination of sepsis and dehydration. * Pulmonary embolism is unlikely. (6) Hyponatremia: Code(s): E87.1 - Hypo-osmolality and hyponatremia Status: Acute Assessment and Plan: Upon admission Sodium is 126 when corrected for glucose. He looks dry on exam and by history. * Continue judicious IV fluid rehydration and monitor sodium closely to ensure it is correcting appropriately. * TSH, urine and serum osmolalities, and urine sodium/creatinine pending. 10/12/22 * FENa 0.3% * Corrected sodium for hyperglycemia is 127. (7) Chronic anticoagulation: Code(s): Z79.01 - [facility] (current) use of anticoagulants Status: Acute Assessment and Plan: Hold Xarelto as he will likely need washout of the infected joint. (8) Type 2 diabetes mellitus with hyperglycemia: Code(s): E11.65 - Type 2 diabetes mellitus with hyperglycemia Status: Acute Assessment and Plan: Glucose was 306 on arrival today. He is no longer on insulin that I can see. Initiate sliding scale insulin, Accu-Cheks, and hypoglycemic protocol. * Check hemoglobin A1c. * He will need tight glucose control to promote wound healing. Plan MEDICAL DECISION MAKING NARRATIVE History obtained from: Patient and ED physician notes History from independent sources: None. External chart review: New problems addressed: Sepsis, infected left knee prosthetic joint, acute/chronic kidney injury, hyponatremia, hyperglycemia. Chronic illnesses addressed: Type 2 diabetes mellitus, hypertension.. Independent interpretation of studies: Labs and imaging/report were personally reviewed. Discussion of management with other providers: Comorbidities complicating care: Patient seems to be neglecting self. Diagnostic tests considered but not ordered: None. Shared decision making: Multiple discussions had with the patient and he did eventually agree with she transfer to [place] for further management and probable surgical treatment for the infected knee. Risk of complication: Progression of sepsis, loss of limb, should this go untreated. Subjective Date/time seen: 10/12/22 09:36 Objective Data Vital Signs Vital Signs: Vital Signs - 24 hr 10/11/22 10:27 10/11/22 10:44 10/11/22 10:47 Temperature 97.6 F Pulse Rate 118 H 127 H Respiratory Rate 28 H 28 H Blood Pressure 152/120 H Pulse Oximetry 100 Oxygen Delivery Room Air 10/11/22 11:40 10/11/22 12:35 10/11/22 13:58 Temperature Pulse Rate 126 H 127 H 126 H Respiratory Rate 24 H 29 H 30 H Blood Pressure 151/102 H 169/83 H 149/92 H Pulse Oximetry 100 100 100 Oxygen Delivery 10/11/22 16:44 10/11/22 17:09 10/11/22 19:00 Temperature 100 F H 100.6 F H Pulse Rate 130 H 129 H 124 H Respiratory Rate 30 H 28 H 28 H Blood Pressure 159/89 H 149/73 H 145/68 H Pulse Oximetry 100 95 100 Oxygen Delivery 10/11/22 21:07 10/11/22 20:00 10/11/22 22:00 Temperature 100.5 F H Pulse Rate 117 H 120 H 119 H Respiratory Rate 20 Blood Pressure 122/61 Pulse Oximetry 96 Oxygen Delivery 10/12/22 00:01 10/12/22 05:17 10/12/22 00:00 Temperature 99.4 F 98.5 F Pulse Rate 110 H 101 H 109 H Respiratory Rate 20 20 Blood Pressure 148/59 H 146/70 H Pulse Oximetry 95 100 Oxygen Delivery 10/12/22 02:00 10/12/22 04:00 10/12/22 06:00 Temperature Pulse Rate 105 H 102 H 100 Respiratory Rate Blood Pressure Pulse Oximetry Oxygen Delivery 10/12/22 08:00 10/12/22 09:25 10/12/22 09:29 Temperature 98 F Pulse Rate 101 H 102 H Respiratory Rate 20 Blood Pressure 140/68 127/59 L Pulse Oximetry 100 Oxygen Delivery Intake/Output Intake/Output: Intake & Output 10/09/22 10/10/22 10/11/22 10/12/22 23:59 23:59 23:59 23:59 Intake Total 2600 350 Output Total 1100 Balance 2600 -750 Meds/Results Medications: Active Medications Generic Name Dose Route Start Last Admin Trade Name Freq PRN Reason Stop Dose Admin Acetaminophen 650 mg 10/11/22 17:46 Acetaminophen 325 Mg Tablet PO Q6H PRN Mild Pain (1-3) or Fever Dextrose 12.5 gm 10/11/22 17:46 Dextrose 50% 25 Gm/50 Ml Syringe IV PUSH PRN PRN Hypoglycemia Protocol Glucagon 1 mg 10/11/22 17:46 Glucagon For Inj 1 Mg Vial IM PRN PRN Hypoglycemia Protocol Glucose 15 gm 10/11/22 17:46 Glucose Oral Gel 15 Gm Of Glucse In 37.5 Gm Tube PO PRN PRN Hypoglycemia Protocol Dextrose 1,000 mls @ 100 mls/hr 10/11/22 17:46 Dextrose 5% 1,000 Ml IVPB PRN PRN Hypoglycemia Protocol Cefepime HCl 2 gm in 50 mls @ 100 mls/hr 10/11/22 22:25 10/12/22 08:21 Maxipime 2 Gm/D5w 50 Ml IVPB 100 mls/hr Q12HR ERIC Administration Vancomycin HCl 2,000 mg in 500 mls @ 250 mls/hr 10/12/22 06:00 10/12/22 06:33 Vancomycin 2,000 Mg/D5w 500 Ml IVPB 250 mls/hr Q18H ERIC Administration Sodium Chloride 1,000 mls @ 125 mls/hr 10/11/22 23:20 10/11/22 23:43 Normal Saline Iv IV CONT 125 mls/hr .Q8H ERIC Administration Insulin Aspart 2 - 5 units 10/12/22 08:00 10/12/22 08:20 Insulin Aspart (*Bkc) 100 Units/Ml SUB-Q 3 units TIDWM ERIC Administration Protocol Levothyroxine Sodium 100 mcg 10/12/22 06:30 10/12/22 09:25 Levothyroxine Sodium 100 Mcg Tablet PO 100 mcg DAILY@0630 ERIC Administration Metoprolol Tartrate 25 mg 10/12/22 09:00 10/12/22 09:25 Metoprolol Tartrate 25 Mg Tablet PO 25 mg Q12HR ERIC Administration Radiology Results: ITS Impressions Chest X-Ray 10/11/22 11:27 Impression: Clear lungs. Venous Doppler Study 10/11/22 16:31 IMPRESSION: 1. No deep venous thrombosis. Head CT 10/11/22 18:30 IMPRESSION: 1. Worsened moderate nonspecific cerebral white matter disease, which likely represents chronic small vessel ischemic disease. Abdomen/Pelvis CT 10/11/22 18:34 IMPRESSION: 1. Left inferior buttock skin thickening and subcutaneous fat stranding, consistent with inflammation. No abscess or osteomyelitis. Lower Extremity CT 10/11/22 18:48 IMPRESSION: 1. Left knee arthroplasty with explanted components and bone cement spacers. 2. Large knee joint effusion containing foci of gas. 3. Widespread subcutaneous edema in the left lower limb. Labs Labs: Laboratory Results - last 24 hr 10/11/22 10/11/22 10/11/22 10:35 10:59 10:59 WBC RBC Hgb Hct MCV MCH MCHC RDW Plt Count MPV Immature Gran % (Auto) Neut % (Auto) Lymph % (Auto) [place] % (Auto) Eos % (Auto) Baso % (Auto) Lymph # (Auto) [place] # (Auto) Eos # (Auto) Baso # (Auto) Abs Immat Gran (auto) Absolute Neuts (auto) Absolute Nucleated RBC Nucleated RBC % Sodium Potassium Chloride Carbon Dioxide Anion Gap BUN Creatinine Estim Creat Clear Calc Estimated GFR Glucose POC Capillary Glucose Hemoglobin A1c Lactic Acid Calcium Magnesium Total Bilirubin AST ALT Alkaline Phosphatase Total Creatine Kinase 141 Total Protein Albumin TSH (Reflex) Urine Color Yellow Urine Appearance Clear Urine pH 7.0 Ur Specific [place] 1.015 Urine Protein 2+ H Urine Glucose (UA) Trace H Urine Ketones Negative Ur Blood (Man) 1+ H Urine Nitrate Negative Urine Bilirubin Negative Urine Urobilinogen 0.2 Leukocyte Esterase Rfl 1+ H Urine RBC 0-2 Urine WBC 31-50 H Urine Bacteria Trace Ur Random Sodium Urine Creatinine Influenza A (RT-PCR) Negative Influenza B (RT-PCR) Negative SARS-CoV-2 RNA (RT-PCR) Negative 10/11/22 10/11/22 10/11/22 10:59 10:59 10:59 WBC 16.5 H RBC 4.95 Hgb 13.6 L Hct 41.5 L MCV 83.8 MCH 27.5 MCHC 32.8 RDW 15.7 H Plt Count 466 H MPV 10.5 H Immature Gran % (Auto) 2.7 H Neut % (Auto) 84.8 H Lymph % (Auto) 6.1 L [place] % (Auto) 5.8 Eos % (Auto) 0.1 Baso % (Auto) 0.5 Lymph # (Auto) 1.00 [place] # (Auto) 1.0 H Eos # (Auto) 0.0 Baso # (Auto) 0.1 Abs Immat Gran (auto) 0.45 H Absolute Neuts (auto) 14.0 H Absolute Nucleated RBC 0.0 Nucleated RBC % 0.0 Sodium 123 L Potassium 4.6 Chloride 90 L Carbon Dioxide 24 Anion Gap 9 BUN 57 H D Creatinine 1.90 H Estim Creat Clear Calc 47 Estimated GFR 35 L Glucose 306 H POC Capillary Glucose Hemoglobin A1c Lactic Acid 3.3 H Calcium 9.3 Magnesium Total Bilirubin 0.9 AST 43 ALT 27 Alkaline Phosphatase 118 Total Creatine Kinase Total Protein 8.0 Albumin 3.9 TSH (Reflex) Urine Color Urine Appearance Urine pH Ur Specific [place] Urine Protein Urine Glucose (UA) Urine Ketones Ur Blood (Man) Urine Nitrate Urine Bilirubin Urine Urobilinogen Leukocyte Esterase Rfl Urine RBC Urine WBC Urine Bacteria Ur Random Sodium Urine Creatinine Influenza A (RT-PCR) Influenza B (RT-PCR) SARS-CoV-2 RNA (RT-PCR) 10/11/22 10/11/22 10/11/22 10:59 14:15 17:06 WBC RBC Hgb Hct MCV MCH MCHC RDW Plt Count MPV Immature Gran % (Auto) Neut % (Auto) Lymph % (Auto) [place] % (Auto) Eos % (Auto) Baso % (Auto) Lymph # (Auto) [place] # (Auto) Eos # (Auto) Baso # (Auto) Abs Immat Gran (auto) Absolute Neuts (auto) Absolute Nucleated RBC Nucleated RBC % Sodium Potassium Chloride Carbon Dioxide Anion Gap BUN Creatinine Estim Creat Clear Calc Estimated GFR Glucose POC Capillary Glucose 262 H Hemoglobin A1c Lactic Acid 2.1 H Calcium Magnesium Total Bilirubin AST ALT Alkaline Phosphatase Total Creatine Kinase Total Protein Albumin TSH (Reflex) Urine Color Urine Appearance Urine pH Ur Specific [place] Urine Protein Urine Glucose (UA) Urine Ketones Ur Blood (Man) Urine Nitrate Urine Bilirubin Urine Urobilinogen Leukocyte Esterase Rfl Urine RBC Urine WBC Urine Bacteria Ur Random Sodium 21 Urine Creatinine 84.7 Influenza A (RT-PCR) Influenza B (RT-PCR) SARS-CoV-2 RNA (RT-PCR) 10/11/22 10/11/22 10/11/22 19:37 19:37 19:37 WBC RBC Hgb Hct MCV MCH MCHC RDW Plt Count MPV Immature Gran % (Auto) Neut % (Auto) Lymph % (Auto) [place] % (Auto) Eos % (Auto) Baso % (Auto) Lymph # (Auto) [place] # (Auto) Eos # (Auto) Baso # (Auto) Abs Immat Gran (auto) Absolute Neuts (auto) Absolute Nucleated RBC Nucleated RBC % Sodium Potassium Chloride Carbon Dioxide Anion Gap BUN Creatinine Estim Creat Clear Calc Estimated GFR Glucose POC Capillary Glucose Hemoglobin A1c 6.8 H Lactic Acid Calcium Magnesium 2.0 Total Bilirubin AST ALT Alkaline Phosphatase Total Creatine Kinase Total Protein Albumin TSH (Reflex) 1.760 Urine Color Urine Appearance Urine pH Ur Specific [place] Urine Protein Urine Glucose (UA) Urine Ketones Ur Blood (Man) Urine Nitrate Urine Bilirubin Urine Urobilinogen Leukocyte Esterase Rfl Urine RBC Urine WBC Urine Bacteria Ur Random Sodium Urine Creatinine Influenza A (RT-PCR) Influenza B (RT-PCR) SARS-CoV-2 RNA (RT-PCR) 10/11/22 10/11/22 10/11/22 19:37 21:10 23:36 WBC RBC Hgb Hct MCV MCH MCHC RDW Plt Count MPV Immature Gran % (Auto) Neut % (Auto) Lymph % (Auto) [place] % (Auto) Eos % (Auto) Baso % (Auto) Lymph # (Auto) [place] # (Auto) Eos # (Auto) Baso # (Auto) Abs Immat Gran (auto) Absolute Neuts (auto) Absolute Nucleated RBC Nucleated RBC % Sodium 123 L 123 L Potassium 4.4 4.5 Chloride 97 L 95 L Carbon Dioxide 16 L 19 L Anion Gap 10 9 BUN 53 H 52 H Creatinine 1.60 H 1.80 H Estim Creat Clear Calc 56 50 Estimated GFR 43 L 38 L Glucose 250 H 318 H POC Capillary Glucose 267 H Hemoglobin A1c Lactic Acid Calcium 8.1 L 8.3 L Magnesium Total Bilirubin AST ALT Alkaline Phosphatase Total Creatine Kinase Total Protein Albumin TSH (Reflex) Urine Color Urine Appearance Urine pH Ur Specific [place] Urine Protein Urine Glucose (UA) Urine Ketones Ur Blood (Man) Urine Nitrate Urine Bilirubin Urine Urobilinogen Leukocyte Esterase Rfl Urine RBC Urine WBC Urine Bacteria Ur Random Sodium Urine Creatinine Influenza A (RT-PCR) Influenza B (RT-PCR) SARS-CoV-2 RNA (RT-PCR) 10/12/22 10/12/22 10/12/22 04:59 04:59 08:03 WBC 7.9 RBC 4.34 L Hgb 12.1 L Hct 37.1 L MCV 85.5 MCH 27.9 MCHC 32.6 RDW 15.5 H Plt Count 317 MPV 10.3 Immature Gran % (Auto) Neut % (Auto) Lymph % (Auto) [place] % (Auto) Eos % (Auto) Baso % (Auto) Lymph # (Auto) [place] # (Auto) Eos # (Auto) Baso # (Auto) Abs Immat Gran (auto) Absolute Neuts (auto) Absolute Nucleated RBC Nucleated RBC % Sodium 123 L Potassium 4.8 Chloride 97 L Carbon Dioxide 18 L Anion Gap 8 BUN 49 H Creatinine 1.60 H Estim Creat Clear Calc 56 Estimated GFR 43 L Glucose 274 H POC Capillary Glucose 279 H Hemoglobin A1c Lactic Acid Calcium 8.3 L Magnesium 2.3 Total Bilirubin 0.8 AST 54 ALT 26 Alkaline Phosphatase 91 Total Creatine Kinase Total Protein 7.0 Albumin 3.2 L TSH (Reflex) Urine Color Urine Appearance Urine pH Ur Specific [place] Urine Protein Urine Glucose (UA) Urine Ketones Ur Blood (Man) Urine Nitrate Urine Bilirubin Urine Urobilinogen Leukocyte Esterase Rfl Urine RBC Urine WBC Urine Bacteria Ur Random Sodium Urine Creatinine Influenza A (RT-PCR) Influenza B (RT-PCR) SARS-CoV-2 RNA (RT-PCR)
--- NOTE | 2022-10-12 10:47 | PC.NURSE ---
DONG Chapman with [facility] called and updated on patient transfer status. All questions answered and plan of care reviewed. Patient pending transfer.
[2022-10-12 12:15] LABS: Glucose Point of Care 310 mg/dl (65-105)
[2022-10-12] MEDS: SODIUM CHLORIDE 0.9% IV 1,000 ML 125 ML IV CONT (12:49)
--- NOTE | 2022-10-12 13:16 | PM.TDS ---
Transfer Discharge Sum: Prov Provider Date of admission: 10/11/22 15:26 Primary care physician: Jonathan Arango MD Admitting clinician: Jovanny Pereira MD Attending physician on admission: Adeloa Polk Attending physician on discharge: Lenin Smallwood Discharging clinician: Yessy France Anticipated date of transfer: 10/12/22 Receiving physician/facility: Dr. Gerry Bustamante/[facility] DS: Admitting Diagnosis Discharge Date 10/12/22 Admitting Diagnosis Sepsis, infection of prosthetic left knee joint, TRACY, dehydration, atrial tachycardia DS: Discharge Diagnosis Discharge Diagnosis (1) Sepsis: Code(s): A41.9 - Sepsis, unspecified organism Status: Acute Assessment and Plan: 10/11/22 Present on admission and supported by fever, tachycardia, leukocytosis, and lactic acidosis in the setting of left prosthetic knee joint infection. Lactic acid on arrival 3.3 Lactic acid level trending down with IV fluid boluses. Blood pressures have been stable. Blood cultures no growth to date Urine culture pending 10/12/22 White blood cell count within normal limits (2) Infection of prosthetic left knee joint: Code(s): T84.54XA - Infection and inflammatory reaction due to internal left knee prosthesis, initial encounter Status: Acute Assessment and Plan: Patient has a history of MSSA periprosthetic joint infections. Broad-spectrum antibiotics with cefepime and vancomycin. Blood cultures no growth to date Call placed to [facility] transfer center as this has been followed by orthopedic surgeon Dr. Gerry Bustamante. Patient plan to transfer to [place] on 10/12/22 via ambulance. (3) Acute kidney injury superimposed on chronic kidney disease: Code(s): N17.9 - Acute kidney failure, unspecified; N18.9 - Chronic kidney disease, unspecified Status: Acute Assessment and Plan: Most likely due to a combination of dehydration from hypovolemia given poor oral intake and possibly ATN from sepsis. Haile catheter inserted in the ED without evidence of urinary retention. Continue judicious IV fluid rehydration with close monitoring of I/O, volume status, and renal function. Avoid nephrotoxic agents. (4) Dehydration: Code(s): E86.0 - Dehydration Status: Acute Assessment and Plan: Continue judicious hydration as detailed above. (5) Atrial tachycardia: Code(s): I47.1 - Supraventricular tachycardia Status: Acute Assessment and Plan: At times patient appears to be in a sinus tachycardia however he may very well be in atrial flutter. Tachycardia is likely due to a combination of sepsis and dehydration. Pulmonary embolism is unlikely. (6) Hyponatremia: Code(s): E87.1 - Hypo-osmolality and hyponatremia Status: Acute Assessment and Plan: Upon admission Sodium is 126 when corrected for glucose. He looks dry on exam and by history. Continue judicious IV fluid rehydration and monitor sodium closely to ensure it is correcting appropriately. TSH, urine and serum osmolalities, and urine sodium/creatinine pending. 10/12/22 FENa 0.3% Corrected sodium for hyperglycemia is 127. (7) Chronic anticoagulation: Code(s): Z79.01 - assistant terminal manager (current) use of anticoagulants Status: Acute Assessment and Plan: Hold Xarelto as he will likely need washout of the infected joint. (8) Type 2 diabetes mellitus with hyperglycemia: Code(s): E11.65 - Type 2 diabetes mellitus with hyperglycemia Status: Acute Assessment and Plan: Glucose was 306 on arrival today. He is no longer on insulin that I can see. Initiate sliding scale insulin, Accu-Cheks, and hypoglycemic protocol. Check hemoglobin A1c. He will need tight glucose control to promote wound healing. Plan MEDICAL DECISION MAKING NARRATIVE History obtained from: Patient and ED physician notes Independent interpretation of studies: Labs and imaging/report were personally reviewed. Comorbidities complicating care: Patient seems to be neglecting self, uncontrolled type 2 diabetes Diagnostic tests considered but not ordered: None. Risk of complication: Progression of sepsis, loss of limb, should this go untreated. Transfer Discharge Sum: Med Medications Active and Home Medications: Home Medications blood-glucose meter #1 ea 03/28/21 [Rx Confirmed 10/11/22] allopurinol 300 mg tablet 300 mg PO DAILY #90 tabs 06/12/21 [Rx Confirmed 10/11/22] levothyroxine 100 mcg tablet 100 mcg PO DAILY #90 tabs 06/12/21 [Rx Confirmed 10/11/22] metoprolol tartrate 50 mg tablet (Lopressor) 25 mg PO Q12H #90 tabs 06/12/21 [Rx Confirmed 10/11/22] rivaroxaban 20 mg tablet (Xarelto) 20 mg PO DAILY #90 tabs 06/12/21 [Rx Confirmed 10/11/22] glimepiride 4 mg tablet See Rx Instructions .Route .COMPLEX #180 tabs 08/23/22 [Rx Confirmed 10/11/22] metformin 1,000 mg tablet See Rx Instructions .Route .COMPLEX #180 tabs 08/23/22 [Rx Confirmed 10/11/22] blood sugar diagnostic #100 ea 08/29/22 [Rx Confirmed 10/11/22] Active Medications Acetaminophen (Acetaminophen 325 Mg Tablet) 650 mg PO Q6H PRN PRN Reason: Mild Pain (1-3) or Fever Dextrose (Dextrose 50% 25 Gm/50 Ml Syringe) 12.5 gm IV PUSH PRN PRN; Protocol PRN Reason: Hypoglycemia Glucagon (Glucagon For Inj 1 Mg Vial) 1 mg IM PRN PRN; Protocol PRN Reason: Hypoglycemia Glucose (Glucose Oral Gel 15 Gm Of Glucse In 37.5 Gm Tube) 15 gm PO PRN PRN; Protocol PRN Reason: Hypoglycemia Dextrose (Dextrose 5% 1,000 Ml) 1,000 mls @ 100 mls/hr IVPB PRN PRN; Protocol PRN Reason: Hypoglycemia Cefepime HCl (Maxipime 2 Gm/D5w 50 Ml) 2 gm in 50 mls @ 100 mls/hr IVPB Q12HR FORMERLY [facility], 1928[facility]1983 Last Admin: 10/12/22 08:21 Dose: 100 mls/hr Vancomycin HCl (Vancomycin 2,000 Mg/D5w 500 Ml) 2,000 mg in 500 mls @ 250 mls/hr IVPB Q18H FOR[facility], [facility]1983 Last Admin: 10/12/22 06:33 Dose: 250 mls/hr Sodium Chloride (Normal Saline Iv) 1,000 mls @ 125 mls/hr IV CONT .Q8H FOR[facility]LY [facility], [facility]1983 Last Admin: 10/12/22 12:49 Dose: 125 mls/hr Insulin Aspart (Insulin Aspart (*Bkc) 100 Units/Ml) 2 - 5 units SUB-Q TIDWM [facility]LY [facility], [facility]1983; Protocol Last Admin: 10/12/22 12:49 Dose: 4 units Levothyroxine Sodium (Levothyroxine Sodium 100 Mcg Tablet) 100 mcg PO DAILY@0630 FOR[facility]LY [facility], [facility]1983 Last Admin: 10/12/22 09:25 Dose: 100 mcg Metoprolol Tartrate (Metoprolol Tartrate 25 Mg Tablet) 25 mg PO Q12HR [facility], [facility] Last Admin: 10/12/22 09:25 Dose: 25 mg Transfer Discharge Sum: Hosp Hospital Course Hospital course: Ganesh Gonzales is a 67 year old male with paroxysmal atrial fibrillation on chronic anticoagulation, hypertension, coronary artery disease, hypothyroidism, type 2 diabetes mellitus, chronic kidney disease, and history of MSSA infection who presented to the emergency department via EMS from home with reports that he is unable to care for himself (per family report).? Patient is a poor historian. History on admission obtained from ED physician notes, and consultation notes scanned into the EMR from outside facilities. Patient has history of an MSSA prosthetic joint infections bilaterally. Patient appeared to be missing follow-up appointments with the orthopedist. Patient last seen on 05/16/2022 at [facility]. Patient's post to have reimplantation of hardware but this was canceled due to patient having multiple bed sores. According to family patient has been neglecting himself and refusing to allow family to help. Patient finally convinced to be seen at the hospital where he was found to have a low-grade temperature of a 100.6? F. heart rate in the 101 20s, blood pressure stable. White blood cell count of 16.5, BUN 57, creatinine 1.9, sodium 123, CK 141, lactic acid 3.3, glucose 306. UA positive for 1+ leukocyte Estrace and 31-50 white blood cells with trace bacteria. Blood culture and urine culture pending. Patient stated that he was having knee pain for several months that had been increasing in intensity over the past couple days. Workup included chest x-ray negative, no DVT found on Doppler, CT head chronic small-vessel ischemic disease, CT abdomen pelvis left inferior buttock skin thickening and subcutaneous fat stranding, CT lower extremity revealed left knee arthroplasty with expanding components of bone and cement spacers, large knee joint effusion containing foci of gas, and widespread subcutaneous edema in the lower limb. Patient thought to be septic due to left prosthetic knee joint infection. Patient was found to be afebrile, tachycardic, having leukocytosis, and lactic acidosis. Patient started on cefepime and vancomycin as well as IV fluids. Admitting provider contacted [facility] transfer center due to patient being followed by orthopedic surgeon, Dr. Gerry Gao, and patient put on waiting list. Patient accepted on 10/12/2022 implants to be transferred via ambulance. Time Spent with Patient Time attestation: Total time spent providing and/or coordinating transfer services: 30 minutes Exam Narrative: GENERAL: Comfortable, no acute distress HENMT: moist mucous membranes EYES: EOM intact b/l NECK: no lymphadenopathy RESPIRATORY: Refusal of exam CARDIO: RRR GI: soft, nontender, bowel sounds present : Haile catheter patent, urine clear yellow SKIN: Dry skin bilaterally over the arms with flaking EXTREMITIES: Edematous left lower extremity from the knee down, point tenderness to proximal knee palpation, left knee erythema, left knee warm to touch. Bilateral surgical scars over knees. Bilateral lower extremity edema left greater than right. DS: Data Data Completed and Pending Completed studies during hospitalization: CBC, CMP, lactic acid, UA with reflux culture, fluid COVID, blood culture, lower extremity CT, abdomen pelvis CT, head CT, venous Doppler study, and chest x-ray Pending studies at discharge: Blood culture and urine culture Labs on day of discharge: Labs from last 24 hours 10/12/22 10/12/22 10/12/22 12:00 08:03 04:59 WBC RBC Hgb Hct MCV MCH MCHC RDW Plt Count MPV Sodium 123 L Potassium 4.8 Chloride 97 L Carbon Dioxide 18 L Anion Gap 8 BUN 49 H Creatinine 1.60 H Estim Creat Clear Calc 56 Estimated GFR 43 L Glucose 274 H POC Capillary Glucose 310 H 279 H Hemoglobin A1c Lactic Acid Calcium 8.3 L Magnesium 2.3 Total Bilirubin 0.8 AST 54 ALT 26 Alkaline Phosphatase 91 Total Protein 7.0 Albumin 3.2 L TSH (Reflex) 10/12/22 10/11/22 10/11/22 04:59 23:36 21:10 WBC 7.9 RBC 4.34 L Hgb 12.1 L Hct 37.1 L MCV 85.5 MCH 27.9 MCHC 32.6 RDW 15.5 H Plt Count 317 MPV 10.3 Sodium 123 L Potassium 4.5 Chloride 95 L Carbon Dioxide 19 L Anion Gap 9 BUN 52 H Creatinine 1.80 H Estim Creat Clear Calc 50 Estimated GFR 38 L Glucose 318 H POC Capillary Glucose 267 H Hemoglobin A1c Lactic Acid Calcium 8.3 L Magnesium Total Bilirubin AST ALT Alkaline Phosphatase Total Protein Albumin TSH (Reflex) 10/11/22 10/11/22 10/11/22 19:37 19:37 19:37 WBC RBC Hgb Hct MCV MCH MCHC RDW Plt Count MPV Sodium 123 L Potassium 4.4 Chloride 97 L Carbon Dioxide 16 L Anion Gap 10 BUN 53 H Creatinine 1.60 H Estim Creat Clear Calc 56 Estimated GFR 43 L Glucose 250 H POC Capillary Glucose Hemoglobin A1c Lactic Acid Calcium 8.1 L Magnesium 2.0 Total Bilirubin AST ALT Alkaline Phosphatase Total Protein Albumin TSH (Reflex) 1.760 10/11/22 10/11/22 10/11/22 19:37 17:06 14:15 WBC RBC Hgb Hct MCV MCH MCHC RDW Plt Count MPV Sodium Potassium Chloride Carbon Dioxide Anion Gap BUN Creatinine Estim Creat Clear Calc Estimated GFR Glucose POC Capillary Glucose 262 H Hemoglobin A1c 6.8 H Lactic Acid 2.1 H Calcium Magnesium Total Bilirubin AST ALT Alkaline Phosphatase Total Protein Albumin TSH (Reflex) Preliminary micro results at discharge 10/11/22 11:32 Blood Culture - Preliminary Blood 10/11/22 11:32 Blood Culture - Preliminary Blood
[2022-10-14 15:59] LABS: Osmolality, Urine 793 mOsm/kg (50-1200)
== END 2022-10-12 15:41 | disposition short-term general hospital (02) | DRG 560 ==
LOC: ANHED 12:56 → ANHIMU 17:21
PROVIDERS: Physician Assistant; Admitting Provider Family Medicine; Emergency Provider Emergency Medicine; Visit Provider Internal Medicine
DX: T84.54XA Infection and inflammatory reaction due to internal left knee prosthesis, initial encounter (principal); E87.1 Hypo-osmolality and hyponatremia; N39.0 Urinary tract infection, site not specified; E87.21 Acute metabolic acidosis; I48.92 Unspecified atrial flutter; N17.9 Acute kidney failure, unspecified; E86.0 Dehydration; N18.9 Chronic kidney disease, unspecified; E11.22 Type 2 diabetes mellitus with diabetic chronic kidney disease; Z20.822 Contact with and (suspected) exposure to COVID-19; I12.9 Hypertensive chronic kidney disease with stage 1 through stage 4 chronic kidney disease, or unspecified chronic kidney disease; E11.65 Type 2 diabetes mellitus with hyperglycemia; I25.10 Atherosclerotic heart disease of native coronary artery without angina pectoris; I48.0 Paroxysmal atrial fibrillation; E03.9 Hypothyroidism, unspecified; E11.42 Type 2 diabetes mellitus with diabetic polyneuropathy; Z96.653 Presence of artificial knee joint, bilateral; R00.0 Tachycardia, unspecified; N40.0 Benign prostatic hyperplasia without lower urinary tract symptoms; M19.90 Unspecified osteoarthritis, unspecified site; E78.2 Mixed hyperlipidemia; G47.33 Obstructive sleep apnea (adult) (pediatric); Z79.01 Long term (current) use of anticoagulants; Z95.5 Presence of coronary angioplasty implant and graft; Z98.42 Cataract extraction status, left eye; Z98.41 Cataract extraction status, right eye
CPT/HCPCS: 36415; 51701; 51702; 70450; 71045; 73700; 74176; 80048; 80053; 81001; 82550; 82570; 82948; 83036; 83605; 83735; 83935; 84300; 84443; 85025; 85027; 87040; 87077; 87086; 87186; 87636; 93005; 93970; 96365; 96366; 96367; 99285; A9270; J0692; J0696; J1815; J3370; J7030

== ENCOUNTER 2022-11-29 10:10 | Observation (INO) | payer MEDICARE, SELFPAY ==
[2022-11-29] VITALS (8 sets, daily range): BP systolic 127–141; BP diastolic 61–81; PULSE 83–107; RESP 13–20; TEMP 36.1–36.9; O2SAT 98–100; BMI 34.2
--- NOTE | 2022-11-29 10:16 | ECG_ITS ---
Measurements Intervals [place] Rate: 86 P: -52 DE: 228 QRS: -41 QRSD: 104 T: 81 QT: 345 QTc: 415 Interpretive Statements SINUS RHYTHM WITH FIRST DEGREE AV BLOCK LEFT AXIS DEVIATION CANNOT RULE OUT SEPTAL INFARCT, AGE INDETERMINATE BORDERLINE ST-T WAVE ABNORMALITY- HIGH LATERAL LEADS ABNORMAL ECG COMPARED TO ECG 10/11/2022 11:23:50 SINUS RHYTHM NOW PRESENT FIRST DEGREE AV BLOCK NOW PRESENT Electronically Signed On 11-29-2022 10:37:25 YARN SPOOLER by Remi Jara D.O.
[2022-11-29 10:37] LABS: Basophils Absolute Auto 0.1 K/mm3 (0.0-0.1); Eosinophils Absolute Auto 0.5 K/mm3 (0-0.3); Eosinophils Percent Auto 7.2 % (0-4.4); Hematocrit 37.6 % (42.0-52.0); Hemoglobin 11.6 g/dL (14.0-18.0); Immature Granulocyte Absolute 0.04 K/mm3 (0.00-0.031); Immature Granulocyte Percent A 0.6 % (0-0.5); Lymphocytes Absolute Auto 1.69 K/mm3 (0.9-3.2); Mean Corpuscular HGB Conc 30.9 g/dl (32-36); Mean Corpuscular Hemoglobin 27.8 pg (26-34); Mean Corpuscular Volume 90.2 fl (80-100); Mean Platelet Volume 10.3 fl (7.4-10.4); Monocytes Absolute Auto 0.6 K/mm3 (0.1-0.6); Monocytes Percent Auto 9.7 % (2.6-8.5); Neutrophils Absolute Auto 3.4 K/mm3 (1.3-6.7); Neutrophils Percent Auto 54.5 % (45.5-73.1); Platelet Count Result 239 k/mm3 (150-375); Red Blood Count 4.17 M/mm3 (4.6-6.20); Red Cell Distribution Width 17.3 % (11.5-14.5); White Blood Count 6.3 K/mm3 (4.5-10.0)
--- NOTE | 2022-11-29 10:52 | PC.NURSE ---
Patient verbally upset about being in the ED. Disability Hearing Officer attempted to establish IV in patient's right hand unsuccessfully. Disability Hearing Officer attempted to look for IV access in patient's left arm. Patient pulled his arm up and stated, I'm thinking if I'm going to let you draw my blood or not . Disability Hearing Officer explained the need for lab work and IV placement. Disability Hearing Officer assessed patient's mental status and patient was only alert and orientated x 2. Patient reluctantly gave specification writer his arm and allowed specification writer to draw his blood.
--- NOTE | 2022-11-29 11:10 | ED.GENADULT ---
HPI - General Adult General Chief complaint: Recheck/Abnormal Lab/Rx Stated complaint: ABN LABS Time Seen by Provider: 11/29/22 10:14 History of Present Illness HPI narrative: 67-year-old male presenting to the ED for evaluation due to elevated potassium. Patient was found to have elevated potassium on outpatient labs drawn yesterday morning. Patient denies complaints at this time. Patient is currently at [facility] for physical reviewed rehabilitation due to a chronic right knee infection. Patient is being treated by an orthopedic physician at [place]. Patient states that he has not been eating and drinking very much due to the quality of the food at [facility]. Patient does report a prior history of enlarged prostate but is unsure if he has had any issues with urinary retention. Patient states that he does feel that he does have some urinary urgency. Patient denies any recent fevers coughs colds, chest pain or abdominal pain. Related Data Home Medications Medication Instructions Recorded Confirmed allopurinol 300 mg tablet 300 mg PO HS 11/29/22 11/29/22 amoxicillin 500 mg capsule 500 mg PO BID 11/29/22 11/29/22 ascorbic acid (vitamin C) 500 mg 500 mg PO Q12H 11/29/22 11/29/22 tablet atorvastatin 40 mg tablet 40 mg PO HS 11/29/22 11/29/22 bisacodyl 10 mg rectal suppository 10 mg RECTAL DAILY PRN Constipation 11/29/22 11/29/22 camphor-menthol 0.5 %-0.5 % lotion 1 applic topical BID 11/29/22 11/29/22 (Anti-Itch (menthol-camphor)) cholecalciferol (vitamin D3) 1,250 1,250 mcg PO WEEKLY 11/29/22 11/29/22 mcg (50,000 unit) capsule furosemide 40 mg tablet 40 mg PO 1700 11/29/22 11/29/22 gentamicin 0.1 % topical ointment 1 applic topical DAILY 11/29/22 11/29/22 glucagon HCl 1 mg solution for 1 mg IM Q24H PRN Hypoglycemia 11/29/22 11/29/22 injection (Glucagon (HCl) Emergency Kit) magnesium citrate (Citroma oral 300 ml PO DAILY PRN Constipation 11/29/22 11/29/22 solution) magnesium hydroxide 400 mg/5 mL 30 ml PO HS PRN Constipation 11/29/22 11/29/22 oral suspension (Milk of Magnesia) metformin 1,000 mg tablet 1,000 mg PO BID 11/29/22 11/29/22 miconazole nitrate 2 % topical 1 applic topical TID 11/29/22 11/29/22 cream (Micatin) multivitamin with minerals 1 tablet PO DAILY 11/29/22 11/29/22 polyethylene glycol 3350 17 17 g PO DAILY PRN Constipation 11/29/22 11/29/22 gram/dose oral powder rivaroxaban 20 mg tablet (Xarelto) 20 mg PO 1700 11/29/22 11/29/22 sennosides 8.6 mg-docusate sodium 2 tab-cap PO Q12H PRN Constipation 11/29/22 11/29/22 50 mg tablet (Senna Plus) sodium phosphates 19 gram-7 118 ml RECTAL DAILY PRN 11/29/22 11/29/22 gram/118 mL enema (Fleet Enema) Constipation Allergies Allergy/AdvReac Type Severity Reaction Status Date / Time No Known Allergies Allergy Verified 11/29/22 17:09 Review of Systems Review of Systems: CONSTITUTIONAL: Denies fever, chills, or sweats. EYES: Denies visual changes, redness, or discharge. ENT: Denies rhinorrhea, congestion, sore throat, or otalgia. CARDIOVASCULAR: Denies chest pain, palpitations, or edema. RESPIRATORY: Denies cough or dyspnea. GASTROINTESTINAL: Denies abdominal pain, nausea, vomiting, or diarrhea. GENITOURINARY: Denies dysuria or hematuria. SKIN: Denies rash or itching. MUSCULOSKELETAL: See HPI NEUROLOGIC: Denies headache, numbness, or weakness. [facility] Past Medical History Medical History (Updated 11/29/22 @ 12:46 by Robert Sawyer MD) Benign prostatic hyperplasia Chronic anticoagulation Chronic atrial fibrillation Coronary artery disease Degenerative joint disease Essential (primary) hypertension Gout Hypothyroidism (acquired) Methicillin susceptible Staphylococcus aureus infection Mixed hyperlipidemia Obstructive sleep apnea Does not use CPAP. Polycythemia Type 2 diabetes mellitus with diabetic neuropathy, unspecified Surgical History Surgical History (Updated 10/11/22 @ 22:57 by Adeola Polk PA-C) History
[2022-11-29 12:05] LABS: Alanine Aminotransferase 17 U/L (6-50); Albumin Level 4.7 g/dL (3.5-5.1); Alkaline Phosphatase 92 U/L (38-126); Anion Gap 14 mmol/L (8-16); Aspartate Amino Transferase 30 U/L (17-59); Bilirubin,Total 0.7 mg/dL (0.2-1.3); Blood Urea Nitrogen 82 mg/dL (9-20); Calcium 9.8 mg/dL (8.4-10.2); Carbon Dioxide 21 mmol/L (22-30); Chloride 99 mmol/L (98-107); Estimated CRCL calculation 24 ml/min; Estimated Glomerular Filt Rate 17; Glucose 158 mg/dL (65-110); Magnesium 1.5 mg/dL (1.6-2.3); Potassium 5.6 mmol/L (3.4-5.0); Sodium 134 mmol/L (137-145)
[2022-11-29 12:37] LABS: Appearance Urine Clear (Clear); Bacteria Urine None Seen /hpf; Bilirubin Urine Negative (Negative); Blood Urine Negative (Negative); Color Urine Yellow (Yellow); Glucose Urine UA Negative (Negative); Ketones Urine Negative (Negative); Leukocyte Esterase Ur Negative LEU/UL (Negative); Nitrate Urine Negative (Negative); Non Pathogenic Casts 0-2; Protein Urine 1+ mg/dL (Negative); RBC Urine 0-2 /hpf (0-2); Specific Grav Ur 1.013 (1.001-1.035); Squamous Epithelial Cell Urine None seen /hpf (Few); Urobilinogen Urine 0.2 mg/dL (<2.0); WBC Urine 0-5 /hpf
[2022-11-29] MEDS: SODIUM CHLORIDE 0.9% IV 1,000 ML 500 ML IV CONT (12:47)
[2022-11-29] MEDS: INSULIN HUMAN REGULAR (*BKC) 100 UNITS/ML IV PUSH (12:48)
[2022-11-29] MEDS: SODIUM BICARBONATE 8.4% 50 MEQ/50 ML SYRINGE IV PUSH (12:49)
[2022-11-29] MEDS: DEXTROSE 50% 25 GM/50 ML SYRINGE IV PUSH (12:49)
[2022-11-29 12:50] LABS: Add Urine Microscopic? YES
[2022-11-29] MEDS: SODIUM ZIRCONIUM CYCLOSILICATE 10 GM POWD.PACK PO (12:51)
--- NOTE | 2022-11-29 12:56 | PC.NURSE ---
recommended urinary estrada catheter due to post residual bladder scan results. pt states fuck no . made aware.
[2022-11-29] MEDS: SODIUM CHLORIDE 0.9% IV 1,000 ML 100 ML IV CONT (14:52)
--- NOTE | 2022-11-29 15:47 | ADMGEN ---
This patient, Ganesh Gonzales, was admitted to Medical Room 251-01. Patient/family oriented to hospital policies and general routines including ID bracelet, bed and alarms, visiting hours, pain management, procedures, bathroom and other care routines, personal items, smoking policy, room service/diet, and visiting hours. Information on how to activate the Rapid Response Team has been discussed. Patient/Family are encouraged to report perceived risks to care and to ask questions if they do not understand what they are told or what they should do.
--- NOTE | 2022-11-29 17:15 | PM.IMHP ---
H&P: HPI History of Present Illness Date/Time: 11/29/22 17:15 Chief Complaint: Abnormal labs. Narrative: This is a 67-year-old male with paroxysmal atrial fibrillation on chronic anticoagulation, hypertension, coronary artery disease, hypothyroidism, type 2 diabetes mellitus, chronic kidney disease, and history of MSSA infection who presented to the emergency department via EMS from [facility] for evaluation of abnormal labs. Patient provides the following history though some of the following is supplemented via a review of his electronic medical records and a recent history and physical done by myself in September 2022. He is currently at rehab following explantation of an infected left knee joint and he has an antibiotic spacer in place. In any event he had labs drawn yesterday morning and his potassium was elevated which prompted the visit today. BMP done in the ED today was significant for a sodium of 134, potassium 5.6, BUN 82, creatinine 3.60, calcium 9.8, magnesium 1.5. A Haile catheter was ordered for strict I/O given worsening renal function though he declined. He has thus been started on IV fluids and he was given Lokelma, sodium bicarbonate, insulin, and dextrose in the ED. A repeat potassium was ordered for this evening however the patient refused. He is also refusing telemetry despite education regarding the importance of treating hyperkalemia and monitoring his heart rate as it may cause cardiac dysrhythmias or even cardiac arrest. He is alert and oriented and is choosing to assume that risk. Regarding his worsening renal function, he looks dry on exam and states he has not been eating or drinking well because of the quality of food at [facility]. He seems despondent and depressed which may be playing a factor in his poor appetite as well. He has had a long road with multiple joint infections and this is certainly taking a toll on him. Additionally he has benign prostatic hyperplasia and he may very well be retaining urine though again he is refusing bladder scan and Haile catheter insertion. He denies fever, chills, and sweats. No cold or flu symptoms. No chest pain shortness a breath. Denies nausea, vomiting, diarrhea. He has not noticed a change in urine output. Denies harmful thoughts. Review of Systems Review of Systems: Twelve systems were reviewed and are negative except for as per HPI. [facility] Past Medical History Medical History Benign prostatic hyperplasia Chronic anticoagulation Chronic atrial fibrillation Coronary artery disease Degenerative joint disease Essential (primary) hypertension Gout Hypothyroidism (acquired) Methicillin susceptible Staphylococcus aureus infection Mixed hyperlipidemia Obstructive sleep apnea Does not use CPAP. Polycythemia Type 2 diabetes mellitus with diabetic neuropathy, unspecified Surgical History Surgical History History of arthroscopy of both knees History of bilateral cataract extraction History of bilateral knee replacement History of cardioversion History of carpal tunnel release History of coronary angioplasty with insertion of stent History of revision of total replacement of knee joint Family History Family History Mother Diabetes mellitus Family history of cardiovascular disease Family history of malignant neoplasm of breast in first degree relative Father Patient's father is , Onset Age: 77 Malignant neoplasm of prostate Family history of lung cancer Other Hypertension Social History Social History (Updated 11/30/22 @ 00:04 by Adeola Polk PA-C) Social History: Surrogate medical decision maker: Ganesh Gonzales Jr. (son). Code status: Full code. Smoking status: Never smoker Second hand tobacco smoke exposure: Yes Alcohol intake: never Substance use: never
--- NOTE | 2022-11-29 21:07 | PC.NURSE ---
PT REFUSING ACCUCHECK. HE ALSO REFUSED LAB DRAW FROM PHLEBOTOMY. ATTEMPTED TO EDUCATE PT ON IMPORTANCE OF BS MONITORING AND LABS HE BECAME AGITATED.
--- NOTE | 2022-11-30 00:36 | PC.NURSE ---
LABS REORDERED STAT ON PT. ASKED BY HOSPITALIST TO TALK WITH PT ABOUT OBTAINING LABS AND WHY THEY ARE IMPORTANT AND PT CODE STATUS DUE TO THE FACT THAT HE CONTINUES TO REFUSE CARE. ENTERED PT ROOM TO SEE IF HE WAS NOW AGREEABLE TO HAVING HIS LABS DRAWN. HE STATED THAT HE WILL DO IT IN THE MORNING. I EXPLAINED THE IMPORTANCE OF HAVING THESE LABS DRAWN AND PT STARED AT ME BLANKLY AND REPEATED HE WOULD DO IT IN THE MORNING. I INFORMED THE PT HIS LABS WERE CRITICAL AND NEEDED MONITORING ESPECIALLY SINCE HE IS ALSO NOT AGREEABLE TO WEARING THE INTENSIVE CARE ANAESTHETIST. PT ONCE AGAIN REPEATED ILL DO IT IN THE MORNING
[2022-11-30] MEDS: SODIUM CHLORIDE 0.9% IV 1,000 ML 100 ML IV CONT ×3 (01:04→22:07)
--- NOTE | 2022-11-30 05:14 | PC.NURSE ---
0500 PT ONCE AGAIN REFUSED LABS. KITCHEN CHEF NOTIFIED ME AFTER LEAVING PT ROOM. I ENTERED ROOM TO SPEAK WITH PT AND ONCE AGAIN HE WOULD NOT INTERACT WITH ME JUST RESPONDING NO TO EVERY QUESTION I ASKED.
[2022-11-30] MEDS: LEVOTHYROXINE SODIUM 100 MCG TABLET PO (05:56)
[2022-11-30 08:18] VITALS: PULSE 86
[2022-11-30] MEDS: METOPROLOL TARTRATE 25 MG TABLET PO ×2 (08:18→20:33)
--- NOTE | 2022-11-30 08:23 | PC.NURSE ---
patient refusing amoxicillin tablet. Educated pt about importance.
[2022-11-30 08:25] LABS: Eosinophils Absolute Auto 0.3 K/mm3 (0-0.3); Eosinophils Percent Auto 7.9 % (0-4.4); Hematocrit 30.9 % (42.0-52.0); Hemoglobin 9.9 g/dL (14.0-18.0); Immature Granulocyte Absolute 0.04 K/mm3 (0.00-0.031); Lymphocytes Absolute Auto 0.89 K/mm3 (0.9-3.2); Lymphocytes Percent Auto 22.1 % (18.3-44.2); Mean Corpuscular Hemoglobin 28.4 pg (26-34); Mean Corpuscular Volume 88.5 fl (80-100); Mean Platelet Volume 10.2 fl (7.4-10.4); Monocytes Absolute Auto 0.5 K/mm3 (0.1-0.6); Monocytes Percent Auto 11.4 % (2.6-8.5); Neutrophils Absolute Auto 2.3 K/mm3 (1.3-6.7); Neutrophils Percent Auto 56.6 % (45.5-73.1); Platelet Count Result 184 k/mm3 (150-375); Red Blood Count 3.49 M/mm3 (4.6-6.20); Red Cell Distribution Width 17.2 % (11.5-14.5)
[2022-11-30 08:25] LABS: Glucose Point of Care 116 mg/dl (65-105)
[2022-11-30 08:33] VITALS: O2SAT 99
[2022-11-30 09:20] LABS: Alanine Aminotransferase 15 U/L (6-50); Alkaline Phosphatase 78 U/L (38-126); Anion Gap 8 mmol/L (8-16); Aspartate Amino Transferase 26 U/L (17-59); Bilirubin,Total 0.6 mg/dL (0.2-1.3); Blood Urea Nitrogen 72 mg/dL (9-20); Calcium 8.9 mg/dL (8.4-10.2); Carbon Dioxide 23 mmol/L (22-30); Chloride 107 mmol/L (98-107); Estimated CRCL calculation 29 ml/min; Estimated Glomerular Filt Rate 22; Glucose 117 mg/dL (65-110); Magnesium 1.4 mg/dL (1.6-2.3); Potassium 4.7 mmol/L (3.4-5.0); Sodium 138 mmol/L (137-145)
--- NOTE | 2022-11-30 09:45 | PM.IMPN ---
Progress Note: A&P Assessment and Plan (1) Acute kidney injury superimposed on chronic kidney disease: Code(s): N17.9 - Acute kidney failure, unspecified; N18.9 - Chronic kidney disease, unspecified Status: Acute Assessment and Plan: Presented with BUN/Cr of 82/3.60 Baseline creatinine appears to be 1.6-2.0 Current labs 72/2.90 Trending down Chronic kidney disease stage 3b with GFR of 30-45 Trend labs Avoid nephrotoxic medications Trend urine output (2) Hyperkalemia: Code(s): E87.5 - Hyperkalemia Status: Acute Assessment and Plan: K is 5.6 upon admission Give insulin, D50, lokelma in the ED Current K is 4.7 Labs ordered Trend labs Adjust therapy as indicated (3) Hypomagnesemia: Code(s): E83.42 - Hypomagnesemia Status: Acute Assessment and Plan: Mg at admission was 1.4 Replace with 2gms once Continue to trend Supplement as indicated (4) Infection of prosthetic left knee joint: Code(s): T84.54XA - Infection and inflammatory reaction due to internal left knee prosthesis, initial encounter Status: Acute Assessment and Plan: Chronic at this point Continue amoxicillin WBC stable at 4.0 S/P hardware removal Continue to trend labs and vital signs Stable Refusing antibiotics at this time (5) Type 2 diabetes mellitus: Code(s): E11.9 - Type 2 diabetes mellitus without complications Status: Acute Assessment and Plan: Glucose 158 at last lab draw Accu-Cheks ordered ISS hold metformin for now Trend glucose adjust therapy as indicated (6) Depression: Code(s): F32.A - Depression, unspecified Status: Acute Assessment and Plan: Secondary to recent events Consider consulting psych if continues to interfere with medical management Not sure that the patient would allow for this (7) Essential (primary) hypertension: Code(s): I10 - Essential (primary) hypertension Status: Acute Assessment and Plan: Current BP is 127/61 Continue metoprolol Trend BP adjust therapy as indicated Time Spent With Patient Time: 58 minutes Time with patient: Greater than 35 minutes Subjective Date/time seen: 11/30/22944 Interval history: 11/30/22944 Currently patient is laying in bed. Unfortunately patient is not cooperating and is not willing to give any review of systems. He is being very aggressive and just keeps stating that he does not want to be here and he is fine and should not be here. When trying to get any type of information he just kept getting more and more irate. He would just mock the provider or nurse. At one point he allowed his anger to get so severe that he attempted to throw his fork at me. He did allow for labs. Renal function is improving. He did refuse his amoxicillin and stated that he was not going to take any more of his antibiotics until he talks with the MD from [facility]. He then unfortunately told me to get the F out of his room and not to come back. Prior to exiting the room he was made aware that if he did not want to be here that he is A&Ox4 and he is more than welcome to leave at any time. Was also unable to assess him as he refused assessment at this time. Complete review of systems unable to be obtained due to mental status, aggression, and inability to reason. 11/29/22? 17:15 This is a 67-year-old male with paroxysmal atrial fibrillation on chronic anticoagulation, hypertension, coronary artery disease, hypothyroidism, type 2 diabetes mellitus, chronic kidney disease, and history of MSSA infection who presented to the emergency department via EMS from [facility] for evaluation of abnormal labs. Patient provides the following history though some of the following is supplemented via a review of his e
--- NOTE | 2022-11-30 09:45 | P.PNIM_ITS ---
Progress Note: A&P Assessment and Plan (1) Acute kidney injury superimposed on chronic kidney disease: Code(s): N17.9 - Acute kidney failure, unspecified; N18.9 - Chronic kidney disease, unspecified Status: Acute Assessment and Plan: * Presented with BUN/Cr of 82/3.60 * Baseline creatinine appears to be 1.6-2.0 * Current labs 72/2.90 * Trending down * Chronic kidney disease stage 3b with GFR of 30-45 * Trend labs * Avoid nephrotoxic medications * Trend urine output (2) Hyperkalemia: Code(s): E87.5 - Hyperkalemia Status: Acute Assessment and Plan: * K is 5.6 upon admission * Give insulin, D50, lokelma in the ED * Current K is 4.7 * Labs ordered * Trend labs * Adjust therapy as indicated (3) Hypomagnesemia: Code(s): E83.42 - Hypomagnesemia Status: Acute Assessment and Plan: * Mg at admission was 1.4 * Replace with 2gms once * Continue to trend * Supplement as indicated (4) Infection of prosthetic left knee joint: Code(s): T84.54XA - Infection and inflammatory reaction due to internal left knee prosthesis, initial encounter Status: Acute Assessment and Plan: * Chronic at this point * Continue amoxicillin * WBC stable at 4.0 * S/P hardware removal * Continue to trend labs and vital signs * Stable * Refusing antibiotics at this time (5) Type 2 diabetes mellitus: Code(s): E11.9 - Type 2 diabetes mellitus without complications Status: Acute Assessment and Plan: * Glucose 158 at last lab draw * Accu-Cheks ordered * ISS * hold metformin for now * Trend glucose * adjust therapy as indicated (6) Depression: Code(s): F32.A - Depression, unspecified Status: Acute Assessment and Plan: * Secondary to recent events * Consider consulting psych if continues to interfere with medical management * Not sure that the patient would allow for this (7) Essential (primary) hypertension: Code(s): I10 - Essential (primary) hypertension Status: Acute Assessment and Plan: * Current BP is 127/61 * Continue metoprolol * Trend BP * adjust therapy as indicated Time Spent With Patient Time: 58 minutes Time with patient: Greater than 35 minutes Subjective Date/time seen: 11/30/22 0945 Interval history: 11/30/22944 Currently patient is laying in bed. Unfortunately patient is not cooperating and is not willing to give any review of systems. He is being very aggressive and just keeps stating that he does not want to be here and he is fine and should not be here. When trying to get any type of information he just kept getting more and more irate. He would just mock the provider or nurse. At one point he allowed his anger to get so severe that he attempted to throw his fork at me. He did allow for labs. Renal function is improving. He did refuse his amoxicillin and stated that he was not going to take any more of his antibiotics until he talks with the MD from [facility]. He then unfortunately told me to get the F out of his room and not to come back. Prior to exiting the room he was made aware that if he did not want to be here that he is A&Ox4 and he is more
[2022-11-30] MEDS: MAGNESIUM SULF 2 GM/WATER 50ML 2 GM/50 ML BAG IVPB (10:29)
[2022-11-30 14:00] VITALS: BP 140/73; PULSE 71; RESP 16; TEMP 36.4; O2SAT 100
--- NOTE | 2022-11-30 14:57 | PC.NURSE ---
Patient still refusing to wear heart monitor or have accuchecks done despite education
[2022-11-30] MEDS: RIVAROXABAN 20 MG TABLET PO (18:29)
--- NOTE | 2022-11-30 20:32 | PC.NURSE ---
Pt. refused his HS accucheck at this time.
[2022-11-30 20:33] VITALS: PULSE 76
[2022-11-30 20:35] VITALS: BP 138/68; PULSE 74; RESP 16; TEMP 36.6; O2SAT 100
[2022-12-01 05:09] VITALS: BP 137/73; PULSE 76; RESP 16; TEMP 36.5; O2SAT 100
[2022-12-01] MEDS: LEVOTHYROXINE SODIUM 100 MCG TABLET PO (05:51)
[2022-12-01] MEDS: SODIUM CHLORIDE 0.9% IV 1,000 ML 100 ML IV CONT ×2 (09:02→19:04)
[2022-12-01 09:10] VITALS: PULSE 70
[2022-12-01] MEDS: METOPROLOL TARTRATE 25 MG TABLET PO ×2 (09:10→21:18)
[2022-12-01] MEDS: MICONAZOLE NITRATE 2% CREAM 30 GM TUBE 1 APPLIC TOPICAL (09:13)
[2022-12-01 09:23] LABS: Glucose Point of Care 113 mg/dl (65-105)
[2022-12-01 09:53] LABS: Basophils Absolute Auto 0.1 K/mm3 (0.0-0.1); Basophils Percent Auto 1.2 % (0.2-1.2); Eosinophils Absolute Auto 0.3 K/mm3 (0-0.3); Eosinophils Percent Auto 8.2 % (0-4.4); Hematocrit 33.6 % (42.0-52.0); Hemoglobin 10.5 g/dL (14.0-18.0); Immature Granulocyte Absolute 0.03 K/mm3 (0.00-0.031); Immature Granulocyte Percent A 0.7 % (0-0.5); Lymphocytes Absolute Auto 1.01 K/mm3 (0.9-3.2); Lymphocytes Percent Auto 24.3 % (18.3-44.2); Mean Corpuscular HGB Conc 31.3 g/dl (32-36); Mean Corpuscular Hemoglobin 27.9 pg (26-34); Mean Corpuscular Volume 89.4 fl (80-100); Mean Platelet Volume 9.9 fl (7.4-10.4); Monocytes Absolute Auto 0.4 K/mm3 (0.1-0.6); Monocytes Percent Auto 10.1 % (2.6-8.5); Neutrophils Absolute Auto 2.3 K/mm3 (1.3-6.7); Neutrophils Percent Auto 55.5 % (45.5-73.1); Platelet Count Result 198 k/mm3 (150-375); Red Blood Count 3.76 M/mm3 (4.6-6.20); White Blood Count 4.2 K/mm3 (4.5-10.0)
[2022-12-01 10:15] LABS: Alanine Aminotransferase 15 U/L (6-50); Albumin Level 4.3 g/dL (3.5-5.1); Alkaline Phosphatase 81 U/L (38-126); Anion Gap 12 mmol/L (8-16); Aspartate Amino Transferase 23 U/L (17-59); Bilirubin,Total 0.6 mg/dL (0.2-1.3); Blood Urea Nitrogen 52 mg/dL (9-20); Calcium 9.1 mg/dL (8.4-10.2); Carbon Dioxide 22 mmol/L (22-30); Chloride 106 mmol/L (98-107); Estimated CRCL calculation 30 ml/min; Estimated Glomerular Filt Rate 23; Glucose 140 mg/dL (65-110); Magnesium 1.8 mg/dL (1.6-2.3); Potassium 4.1 mmol/L (3.4-5.0); Sodium 140 mmol/L (137-145)
--- NOTE | 2022-12-01 11:27 | P.PNIM_ITS ---
Progress Note: A&P Assessment and Plan (1) Acute kidney injury superimposed on chronic kidney disease: Code(s): N17.9 - Acute kidney failure, unspecified; N18.9 - Chronic kidney disease, unspecified Status: Acute Assessment and Plan: * Presented with BUN/Cr of 82/3.60 * Baseline creatinine appears to be 1.6-2.0 * Current labs show creatinine 2.8, improving. * Trending down * Chronic kidney disease stage 3b with GFR of 30-45 * Trend labs * Avoid nephrotoxic medications * Trend urine output (2) Hyperkalemia: Code(s): E87.5 - Hyperkalemia Status: Acute Assessment and Plan: * K is 5.6 upon admission * Give insulin, D50, lokelma in the ED * Current K is 4.7 * Labs ordered * Trend labs * Adjust therapy as indicated (3) Hypomagnesemia: Code(s): E83.42 - Hypomagnesemia Status: Acute Assessment and Plan: * Mg at admission was 1.4 * Replace with 2gms once * Continue to trend * Supplement as indicated (4) Infection of prosthetic left knee joint: Code(s): T84.54XA - Infection and inflammatory reaction due to internal left knee prost hesis, initial encounter Status: Acute Assessment and Plan: * Chronic at this point * Continue amoxicillin * WBC stable at 4.0 * S/P hardware removal * Continue to trend labs and vital signs * Stable * Refusing antibiotics at this time (5) Type 2 diabetes mellitus: Code(s): E11.9 - Type 2 diabetes mellitus without complications Status: Acute Assessment and Plan: * Glucose 158 at last lab draw * Accu-Cheks ordered * ISS * hold metformin for now * Trend glucose * adjust therapy as indicated (6) Depression: Code(s): F32.A - Depression, unspecified Status: Acute Assessment and Plan: * Secondary to recent events * Consider consulting psych if continues to interfere with medical management * Not sure that the patient would allow for this (7) Essential (primary) hypertension: Code(s): I10 - Essential (primary) hypertension Status: Acute Assessment and Plan: * Current BP is 127/61 * Continue metoprolol * Trend BP * adjust therapy as indicated Subjective Date/time seen: 12/01/22 11:27 No complaints Exam Narrative: Exam is consistent of visual findings as patient would not allow, and refused exam General: well-nourished, well-appearing 67-year-old male, sitting up in bed, comfortable, NARD Neuro: awake, alert and oriented x4, speech clear, no focal neuro deficits noted HEENMT: normocephalic, atraumatic Respiratory: nonlabored breathing Cardio: unable to assess Abdomen: nondistended, large and round Extremities: present all 4 Skin: no abnormalities on arms, face, head, or neck Psych: irrational, unable to cope, angry, aggressive, anxious Objective Data Vital Signs Vital Signs: Vital Signs - 24 hr 11/30/22 14:00 11/30/22 20:33 11/30/22 20:35 Temperature 97.5 F L 97.8 F Pulse Rate 71 76 74 Respiratory Rate 16 16 Blood Pressure 140/73 138/68 Pulse
--- NOTE | 2022-12-01 11:27 | PM.IMPN ---
Progress Note: A&P Assessment and Plan (1) Acute kidney injury superimposed on chronic kidney disease: Code(s): N17.9 - Acute kidney failure, unspecified; N18.9 - Chronic kidney disease, unspecified Status: Acute Assessment and Plan: Presented with BUN/Cr of 82/3.60 Baseline creatinine appears to be 1.6-2.0 Current labs show creatinine 2.8, improving. Trending down Chronic kidney disease stage 3b with GFR of 30-45 Trend labs Avoid nephrotoxic medications Trend urine output (2) Hyperkalemia: Code(s): E87.5 - Hyperkalemia Status: Acute Assessment and Plan: K is 5.6 upon admission Give insulin, D50, lokelma in the ED Current K is 4.7 Labs ordered Trend labs Adjust therapy as indicated (3) Hypomagnesemia: Code(s): E83.42 - Hypomagnesemia Status: Acute Assessment and Plan: Mg at admission was 1.4 Replace with 2gms once Continue to trend Supplement as indicated (4) Infection of prosthetic left knee joint: Code(s): T84.54XA - Infection and inflammatory reaction due to internal left knee prosthesis, initial encounter Status: Acute Assessment and Plan: Chronic at this point Continue amoxicillin WBC stable at 4.0 S/P hardware removal Continue to trend labs and vital signs Stable Refusing antibiotics at this time (5) Type 2 diabetes mellitus: Code(s): E11.9 - Type 2 diabetes mellitus without complications Status: Acute Assessment and Plan: Glucose 158 at last lab draw Accu-Cheks ordered ISS hold metformin for now Trend glucose adjust therapy as indicated (6) Depression: Code(s): F32.A - Depression, unspecified Status: Acute Assessment and Plan: Secondary to recent events Consider consulting psych if continues to interfere with medical management Not sure that the patient would allow for this (7) Essential (primary) hypertension: Code(s): I10 - Essential (primary) hypertension Status: Acute Assessment and Plan: Current BP is 127/61 Continue metoprolol Trend BP adjust therapy as indicated Subjective Date/time seen: 12/01/22 11:27 No complaints Exam Narrative: Exam is consistent of visual findings as patient would not allow, and refused exam General: well-nourished, well-appearing 67-year-old male, sitting up in bed, comfortable, NARD Neuro: awake, alert and oriented x4, speech clear, no focal neuro deficits noted HEENMT: normocephalic, atraumatic Respiratory: nonlabored breathing Cardio: unable to assess Abdomen: nondistended, large and round Extremities: present all 4 Skin: no abnormalities on arms, face, head, or neck Psych: irrational, unable to cope, angry, aggressive, anxious Objective Data Vital Signs Vital Signs: Vital Signs - 24 hr 11/30/22 14:00 11/30/22 20:33 11/30/22 20:35 Temperature 97.5 F L 97.8 F Pulse Rate 71 76 74 Respiratory Rate 16 16 Blood Pressure 140/73 138/68 Pulse Oximetry 100 100 12/01/22 05:09 12/01/22 09:10 Temperature 97.7 F Pulse Rate 76 70 Respiratory Rate 16 Blood Pressure 137/73 Pulse Oximetry 100 Intake/Output Intake/Output: Intake & Output 11/28/22 11/29/22 11/30/22 12/02/22 23:59 23:59 23:59 00:59 Intake Total 1322 3150 1710 Output Total 350 2650 800 Balance 972 500 910 Meds/Results Medications: Active Medications Generic Name Dose Route Start Last Admin Trade Name Freq PRN Reason Stop Dose Admin Amoxicillin 500 mg 11/30/22 09:00 12/01/22 09:13 Amoxicillin 500 Mg Capsule PO 12/02/22 21:01 Not Given Q12HR ERIC Dextrose 12.5 gm 11/29/22 12:19 Dextrose 50% 25 Gm/50 Ml Syringe IV PUSH PRN PRN Hypoglycemia Protocol Glucagon 1 mg 11/29/22 12:19 Glucagon For Inj 1 Mg Vial IM
--- NOTE | 2022-12-01 12:39 | PC.NURSE ---
HAT MEASURER stated that patient refused lunch blood sugar check. I went in to convince patient to let me check blood sugar and educated on importance of checking blood sugars at meals. Pt again refused to let me check his blood sugar.
[2022-12-01] MEDS: polyethylene glycoL 3350 17 GM POWD.PACK PO (13:32)
[2022-12-01] MEDS: SENNA/DOCUSATE SODIUM TABLET 1 TAB PO (13:32)
[2022-12-01 14:00] VITALS: BP 127/63; PULSE 66; RESP 16; TEMP 36.6; O2SAT 100
[2022-12-01] MEDS: RIVAROXABAN 20 MG TABLET PO (17:51)
[2022-12-01 20:00] VITALS: PULSE 66; RESP 20; O2SAT 100
[2022-12-01 20:41] VITALS: BP 131/58; PULSE 67; RESP 20; TEMP 36.5; O2SAT 100
[2022-12-01 21:18] VITALS: PULSE 66
--- NOTE | 2022-12-01 21:51 | PC.NURSE ---
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 Pt states he was told by dr alfonso Rahman not to take any antibiotics r/t future knee surgery in December. Pt also states he only checks blood sugar once a day at home so will not allow more than one check per day in hospital. Pt gave no reason for refusal of telemetry monitoring. Wound noted to back of L knee. Radha Nieto notified of refusals and wound. Received order to place wound consult.
[2022-12-02] MEDS: SODIUM CHLORIDE 0.9% IV 1,000 ML 100 ML IV CONT (05:57)
[2022-12-02 05:59] VITALS: BP 133/70; PULSE 63; RESP 20; TEMP 36.9; O2SAT 94
[2022-12-02] MEDS: LEVOTHYROXINE SODIUM 100 MCG TABLET PO (06:00)
--- NOTE | 2022-12-02 08:26 | PC.NURSE ---
Pt refusing morning labs. Told the technical designer to get out of his room. Will make MD aware
[2022-12-02 08:57] VITALS: PULSE 70
[2022-12-02] MEDS: METOPROLOL TARTRATE 25 MG TABLET PO (08:57)
--- NOTE | 2022-12-02 09:00 | PC.NURSE ---
Pt refusing all medications this AM with an exception of Metoprolol. Pt would not let RN do an assessment. Told RN to walk out the door.
[2022-12-02] MEDS: MICONAZOLE NITRATE 2% CREAM 30 GM TUBE 1 APPLIC TOPICAL (11:42)
--- NOTE | 2022-12-02 11:42 | P.DS_ITS ---
DS: Admitting Diagnosis Discharge Date December 02, 2022 Admitting Diagnosis Acute kidney injury DS: Discharge Diagnosis Discharge Diagnosis (1) Acute kidney injury superimposed on chronic kidney disease: Code(s): N17.9 - Acute kidney failure, unspecified; N18.9 - Chronic kidney disease, unspecified Status: Acute Assessment and Plan: * Presented with BUN/Cr of 82/3.60 * Baseline creatinine appears to be 1.6-2.0 * Current labs show creatinine 2.8, improving. * Trending down * Chronic kidney disease stage 3b with GFR of 30-45 * Trend labs * Avoid nephrotoxic medications * Trend urine output (2) Hyperkalemia: Code(s): E87.5 - Hyperkalemia Status: Acute Assessment and Plan: * K is 5.6 upon admission * Give insulin, D50, lokelma in the ED * Current K is 4.7 * Labs ordered * Trend labs * Adjust therapy as indicated (3) Hypomagnesemia: Code(s): E83.42 - Hypomagnesemia Status: Acute Assessment and Plan: * Mg at admission was 1.4 * Replace with 2gms once * Continue to trend * Supplement as indicated (4) Infection of prosthetic left knee joint: Code(s): T84.54XA - Infection and inflammatory reaction due to internal left knee prosthesis, initial encounter Status: Acute Assessment and Plan: * Chronic at this point * Continue amoxicillin * WBC stable at 4.0 * S/P hardware removal * Continue to trend labs and vital signs * Stable * Refusing antibiotics at this time (5) Type 2 diabetes mellitus: Code(s): E11.9 - Type 2 diabetes mellitus without complications Status: Acute Assessment and Plan: * Glucose 158 at last lab draw * Accu-Cheks ordered * ISS * hold metformin for now * Trend glucose * adjust therapy as indicated (6) Depression: Code(s): F32.A - Depression, unspecified Status: Acute Assessment and Plan: * Secondary to recent events * Consider consulting psych if continues to interfere with medical management * Not sure that the patient would allow for this (7) Essential (primary) hypertension: Code(s): I10 - Essential (primary) hypertension Status: Acute Assessment and Plan: * Current BP is 127/61 * Continue metoprolol * Trend BP * adjust therapy as indicated DS: Summary Hospital Course Hospital Course: Patient was admitted for acute kidney injury. Exact etiology is unknown. We are treating him conservatively is slowly improving with improvement in creatinine electrolytes. Patient however has refused blood draws for the last 2 days I was able to convince him to get a BMP yesterday however today he will like get any blood work drawn. He is also refusing any other treatment from nurses and also refusing any IV antibiotics or oral antibiotics and he is refusing just about every type of service that we can offer him. That being said patient will be discharged back to his facility. He can follow-up with his orthopedic surgeon and infectious disease doctor over in [place] Time Spent with Patient Time attestation: Total time spent providing and/or coordinating discharge services: Exam Narrative: Exam is consis
--- NOTE | 2022-12-02 11:42 | PM.DS ---
DS: Admitting Diagnosis Discharge Date December 02, 2022 Admitting Diagnosis Acute kidney injury DS: Discharge Diagnosis Discharge Diagnosis (1) Acute kidney injury superimposed on chronic kidney disease: Code(s): N17.9 - Acute kidney failure, unspecified; N18.9 - Chronic kidney disease, unspecified Status: Acute Assessment and Plan: Presented with BUN/Cr of 82/3.60 Baseline creatinine appears to be 1.6-2.0 Current labs show creatinine 2.8, improving. Trending down Chronic kidney disease stage 3b with GFR of 30-45 Trend labs Avoid nephrotoxic medications Trend urine output (2) Hyperkalemia: Code(s): E87.5 - Hyperkalemia Status: Acute Assessment and Plan: K is 5.6 upon admission Give insulin, D50, lokelma in the ED Current K is 4.7 Labs ordered Trend labs Adjust therapy as indicated (3) Hypomagnesemia: Code(s): E83.42 - Hypomagnesemia Status: Acute Assessment and Plan: Mg at admission was 1.4 Replace with 2gms once Continue to trend Supplement as indicated (4) Infection of prosthetic left knee joint: Code(s): T84.54XA - Infection and inflammatory reaction due to internal left knee prosthesis, initial encounter Status: Acute Assessment and Plan: Chronic at this point Continue amoxicillin WBC stable at 4.0 S/P hardware removal Continue to trend labs and vital signs Stable Refusing antibiotics at this time (5) Type 2 diabetes mellitus: Code(s): E11.9 - Type 2 diabetes mellitus without complications Status: Acute Assessment and Plan: Glucose 158 at last lab draw Accu-Cheks ordered ISS hold metformin for now Trend glucose adjust therapy as indicated (6) Depression: Code(s): F32.A - Depression, unspecified Status: Acute Assessment and Plan: Secondary to recent events Consider consulting psych if continues to interfere with medical management Not sure that the patient would allow for this (7) Essential (primary) hypertension: Code(s): I10 - Essential (primary) hypertension Status: Acute Assessment and Plan: Current BP is 127/61 Continue metoprolol Trend BP adjust therapy as indicated DS: Summary Hospital Course Hospital Course: Patient was admitted for acute kidney injury. Exact etiology is unknown. We are treating him conservatively is slowly improving with improvement in creatinine electrolytes. Patient however has refused blood draws for the last 2 days I was able to convince him to get a BMP yesterday however today he will like get any blood work drawn. He is also refusing any other treatment from nurses and also refusing any IV antibiotics or oral antibiotics and he is refusing just about every type of service that we can offer him. That being said patient will be discharged back to his facility. He can follow-up with his orthopedic surgeon and infectious disease doctor over in [place] Time Spent with Patient Time attestation: Total time spent providing and/or coordinating discharge services: Exam Narrative: Exam is consistent of visual findings as patient would not allow, and refused exam General: well-nourished, well-appearing 67-year-old male, sitting up in bed, comfortable, NARD Neuro: awake, alert and oriented x4, speech clear, no focal neuro deficits noted HEENMT: normocephalic, atraumatic Respiratory: nonlabored breathing Cardio: unable to assess Abdomen: nondistended, large and round Extremities: present all 4 Skin: no abnormalities on arms, face, head, or neck Psych: irrational, unable to cope, angry, aggressive, anxious Discharge Plan Discharge Attending physician on discharge: Terence Harris Discharging Clinician: Terence Harris Patient Disposition: [facility]
[2022-12-02 14:26] LABS: EDCOVIDSCREEN Negative (Negative)
== END 2022-12-02 16:00 ==
LOC: ANHED 12:53 → ANH2MED 15:38
PROVIDERS: Nurse Practitioner; Admitting Provider Student in an Organized Health Care Education/Training Program; Emergency Provider Emergency Medicine; PCP Emergency Medicine; Visit Provider Chiropractor
DX: N17.9 Acute kidney failure, unspecified (principal); E87.5 Hyperkalemia; E83.42 Hypomagnesemia; T84.54XA Infection and inflammatory reaction due to internal left knee prosthesis, initial encounter; I12.9 Hypertensive chronic kidney disease with stage 1 through stage 4 chronic kidney disease, or unspecified chronic kidney disease; E11.22 Type 2 diabetes mellitus with diabetic chronic kidney disease; N18.9 Chronic kidney disease, unspecified; Z20.822 Contact with and (suspected) exposure to COVID-19; F32.A Depression, unspecified; N40.0 Benign prostatic hyperplasia without lower urinary tract symptoms; K59.00 Constipation, unspecified; R94.31 Abnormal electrocardiogram [ECG] [EKG]; I48.91 Unspecified atrial fibrillation; I25.10 Atherosclerotic heart disease of native coronary artery without angina pectoris; M19.90 Unspecified osteoarthritis, unspecified site; M10.9 Gout, unspecified; E03.9 Hypothyroidism, unspecified; E78.5 Hyperlipidemia, unspecified; G47.33 Obstructive sleep apnea (adult) (pediatric); E11.42 Type 2 diabetes mellitus with diabetic polyneuropathy; Z79.01 Long term (current) use of anticoagulants; Z79.84 Long term (current) use of oral hypoglycemic drugs; Z79.899 Other long term (current) drug therapy; Z83.3 Family history of diabetes mellitus; Z82.49 Family history of ischemic heart disease and other diseases of the circulatory system; Z84.89 Family history of other specified conditions
CPT/HCPCS: 36415; 80053; 81001; 82948; 83735; 85025; 87426; 93005; 96361; 96374; 96375; 99285; A9270; C9803; G0378; J1815; J3475; J7030

== ENCOUNTER 2023-08-04 19:07 | Emergency (ER) | payer MEDICARE, SELFPAY ==
[2023-08-04] VITALS (24 sets, daily range): BP systolic 80–124; BP diastolic 45–55; PULSE 105–110; RESP 20–41; TEMP 35.4–36.5; O2SAT 76–100
--- NOTE | ~2023-08-04 | XR_ITS ---
EXAMINATION: XR chest 1V portable DATE: 08/04/2023 20:14 INDICATION: Sepsis TECHNIQUE: frontal view of the chest was obtained. COMPARISON: Chest radiograph dated 10/11/2022 FINDINGS: The lungs remain clear with no focal airspace opacities, pulmonary edema, pleural effusion or pneumot horax. The cardiomediastinal silhouette is normal. Multiple surgical clips at the left axilla and bas e of the left neck. IMPRESSION: 1. No acute cardiopulmonary disease. Reviewed, dictated and finalized at location A. ES' LOCKER ROOM ATTENDANT
--- NOTE | ~2023-08-04 | CT_ITS ---
EXAMINATION: CT chest abdomen pelvis wo con DATE: 08/04/2023 21:36 INDICATION: Sepsis TECHNIQUE: Computed tomography (CT) of the chest, abdomen, and pelvis was performed with 100 mL Omnip aque-350 intravenous contrast. Automated exposure control and iterative reconstruction technique were employed. The dose-length product was 2068.73 mGy-cm. COMPARISON: CT abdomen pelvis dated 10/11/2022 FINDINGS: CHEST CT: There are some respiratory motion in the lungs. Linear discoid atelectasis and mild dependent passive atelectasis in the right lower lobe. No pneumonia, pulmonary edema or pleural effusion. Heart size i s normal. Atherosclerotic coronary artery calcifications. No pericardial effusion. No pathologically enlarged thoracic lymphadenopathy. Multiple surgical clips at the left axilla and supraclavicular lef t base of the neck. There are bridging osteophytes at multiple levels consistent with diffuse idiopat hic skeletal hyperostosis (DISH). ABDOMEN/PELVIS CT: Prominent distention of the gas and fluid-filled stomach. A couple small calcified gallstones at the neck of the decompressed gallbladder with no pericholecystic inflammatory stranding. Liver, spleen, p ancreas and bilateral adrenal glands are normal. There is mild bilateral hydroureteronephrosis extend ing to the bladder which suggests chronic outlet obstruction. There is small amount of gas and a Fole y catheter within the partially decompressed bladder which demonstrates wall thickening and inflammat ory stranding in the surrounding fat raising concern for cystitis. Marked prostatomegaly measuring 7. 0 x 5.7 cm. There are moderate-sized bilateral fat-containing inguinal hernias. No bowel obstruction. Normal appendix. No free intraperitoneal gas or fluid. No pathologically enlarged abdominal or pelvi c lymphadenopathy. Mild lumbar dextrocurvature with moderate spondylosis. IMPRESSION: 1. No acute cardiopulmonary disease. 2. Mild bilateral hydroureteronephrosis likely related to chronic outlet obstruction from the enlarge d prostate although a Haile catheter is in place within the bladder. 3. Stranding in the fat surrounding the bladder raises concern for cystitis. Correlate with urinalysi s. 4. Cholelithiasis. 5. Bilateral moderate-sized fat-containing inguinal hernias. Reviewed, dictated and finalized at location A. DATA DEVELOPER IMPRESSION: 1. No acute cardiopulmonary disease. 2. Mild bilateral hydroureteronephrosis likely related to chronic outlet obstru ction from the enlarged prostate although a Haile catheter is in place within t he bladder. 3. Stranding in the fat surrounding the bladder raises concern for cystitis. Co rrelate with urinalysis. 4. Cholelithiasis. 5. Bilateral moderate-sized fat-containing inguinal hernias.
--- NOTE | 2023-08-04 19:13 | ECG_ITS ---
Measurements Intervals [place] Rate: 106 P: 235 OR: 207 QRS: -51 QRSD: 108 T: -28 QT: 353 QTc: 469 Interpretive Statements SINUS TACHYCARDIA WITH FIRST DEGREE AV BLOCK LEFT ANTERIOR FASCICULAR BLOCK CANNOT RULE OUT SEPTAL INFARCT, AGE INDETERMINATE BORDERLINE ST-T WAVE ABNORMALITY- INF/LAT LEADS BASELINE WANDER- II, III, AVL, V4-V6 ABNORMAL ECG COMPARED TO ECG 11/29/2022 10:18:45 SINUS TACHYCARDIA NOW PRESENT LEFT ANTERIOR FASCICULAR BLOCK NOW PRESENT Electronically Signed On 08-05-2023 6:13:[address] by Remi Jara D.O.
--- NOTE | 2023-08-04 19:40 | ED.GENADULT ---
HPI - General Adult General Chief complaint: Weakness Stated complaint: AMS, n/v/d, 1 week post op Time Seen by Provider: 08/04/23 19:13 History of Present Illness HPI narrative: Patient brought to the emergency department by ambulance from nursing facility. He has been there since a knee replacement procedure a week ago. Patient has become gradually more confused with nausea vomiting and shortness of breath. He is tachypneic and tachycardic. Afebrile. EMS had started patient on a nonrebreather but he is currently on nasal cannula. Patient is confused but alert and oriented x3. He has been too weak and ill to start rehab at the nursing facility. History is limited due to patient's acute mental status changes. History is also obtained from EMS. Related Data Home Medications Medication Instructions Recorded Confirmed allopurinol 300 mg tablet 300 mg PO HS 11/29/22 11/29/22 amoxicillin 500 mg capsule 500 mg PO BID 11/29/22 11/29/22 ascorbic acid (vitamin C) 500 mg 500 mg PO Q12H 11/29/22 11/29/22 tablet atorvastatin 40 mg tablet 40 mg PO HS 11/29/22 11/29/22 bisacodyl 10 mg rectal suppository 10 mg RECTAL DAILY PRN Constipation 11/29/22 11/29/22 camphor-menthol 0.5 %-0.5 % lotion 1 applic topical BID 11/29/22 11/29/22 (Anti-Itch (menthol-camphor)) cholecalciferol (vitamin D3) 1,250 1,250 mcg PO WEEKLY 11/29/22 11/29/22 mcg (50,000 unit) capsule furosemide 40 mg tablet 40 mg PO 1700 11/29/22 11/29/22 gentamicin 0.1 % topical ointment 1 applic topical DAILY 11/29/22 11/29/22 glucagon HCl 1 mg solution for 1 mg IM Q24H PRN Hypoglycemia 11/29/22 11/29/22 injection (Glucagon (HCl) Emergency Kit) magnesium citrate (Citroma oral 300 ml PO DAILY PRN Constipation 11/29/22 11/29/22 solution) magnesium hydroxide 400 mg/5 mL 30 ml PO HS PRN Constipation 11/29/22 11/29/22 oral suspension (Milk of Magnesia) metformin 1,000 mg tablet 1,000 mg PO BID 11/29/22 11/29/22 miconazole nitrate 2 % topical 1 applic topical TID 11/29/22 11/29/22 cream (Micatin) multivitamin with minerals 1 tablet PO DAILY 11/29/22 11/29/22 polyethylene glycol 3350 17 17 g PO DAILY PRN Constipation 11/29/22 11/29/22 gram/dose oral powder rivaroxaban 20 mg tablet (Xarelto) 20 mg PO 1700 11/29/22 11/29/22 sennosides 8.6 mg-docusate sodium 2 tab-cap PO Q12H PRN Constipation 11/29/22 11/29/22 50 mg tablet (Senna Plus) sodium phosphates 19 gram-7 118 ml RECTAL DAILY PRN 11/29/22 11/29/22 gram/118 mL enema (Fleet Enema) Constipation Allergies Allergy/AdvReac Type Severity Reaction Status Date / Time No Known Allergies Allergy Verified 11/29/22 17:09 Review of Systems Review of Systems: A limited due to mental status changes but negative except what is documented in the [facility] Past Medical History Medical History Benign prostatic hyperplasia Chronic anticoagulation Chronic atrial fibrillation Coronary artery disease Degenerative joint disease Essential (primary) hypertension Gout Hypothyroidism (acquired) Methicillin susceptible Staphylococcus aureus infection Mixed hyperlipidemia Obstructive sleep apnea Does not use CPAP. Polycythemia Type 2 diabetes mellitus with diabetic neuropathy, unspecified Surgical History Surgical History History of arthroscopy of both knees History of bilateral cataract extraction History of bilateral knee replacement History of cardioversion History of carpal tunnel release History of coronary angioplasty with insertion of stent History of revision of total replacement of knee joint Family History Family History Mother Diabetes mellitus Family history of cardiovascular disease Family history of malignant neoplasm of breast in first degree relative Father Patient's father is , Onset Age: 77 Malignant neopl
[2023-08-04 19:43] LABS: Hematocrit 32.6 % (42.0-52.0); Hemoglobin 9.1 g/dL (14.0-18.0); Mean Corpuscular HGB Conc 27.9 g/dl (32-36); Mean Corpuscular Hemoglobin 28.7 pg (26-34); Mean Corpuscular Volume 102.8 fl (80-100); Mean Platelet Volume 10.7 fl (7.4-10.4); Platelet Count Result 526 k/mm3 (150-375); Red Blood Count 3.17 M/mm3 (4.6-6.20); Red Cell Distribution Width 15.9 % (11.5-14.5); White Blood Count 30.3 K/mm3 (4.5-10.0)
[2023-08-04 19:49] LABS: Base Excess ABG -27.3 mEq/l (+/-2.0); Fractional Inspired Oxygen 28 %; HCO3 ABG 2.7 mEq/l (22.0-26.0); Oxygen Content ABG 13.8 %vol (16.0-22.0); Oxygen Saturation ABG 96.1 % (95.0-100.0); Oxyhemoglobin 96.3 % THb (90.0-100.0); PO2 ABG 122.5 mmHg (80.0-100.0); PO2 FiO2 Ratio Arterial Blood 4.38 %
[2023-08-04 19:51] LABS: INR 2.3; Prothrombin Time 26.9 Seconds (11.1-14.7)
[2023-08-04 19:52] LABS: Partial Thromboplastin Time 41.2 SECONDS (22.3-36.8)
[2023-08-04 19:52] LABS: Device NASAL CANNULA; Site Drawn LEFT BRACHIAL; pH ABG 6.965 (7.350-7.450)
[2023-08-04 20:07] LABS: Lactic Acid Reflex 17.5 mmol/L (0.7-2.0)
[2023-08-04] MEDS: ONDANSETRON INJ 4 MG/2 ML VIAL IV PUSH (20:12)
[2023-08-04] MEDS: SODIUM BICARBONATE 8.4% 50 MEQ/50 ML SYRINGE 100 MEQ IV PUSH (20:13)
[2023-08-04] MEDS: SODIUM CHLORIDE 0.9% IV 1,000 ML 999 ML IV CONT ×3 (20:15→21:55)
[2023-08-04 20:17] LABS: Band Neutrophils Percent 25 % (0-6); Lymphocytes Absolute Manual 3.93 K/mm3 (1.1-4.5); Monocytes Absolute Manual 2.72 K/mm3 (0.1-0.90); Monocytes Percent Manual 9 % (3-9); Neutrophils Absolute Manual 23.63 K/mm3 (1.3-6.7); Neutrophils Percent Manual 53 % (46-73); Total Cells Counted 100
[2023-08-04] MEDS: cefTRIAXone 2 GM/NS 100 ML 2 GM/100 ML BAG IVPB (20:17)
[2023-08-04 20:18] LABS: Platelet Estimate Increased (Adequate); Schistocytes None Seen (NORMAL)
[2023-08-04 20:19] LABS: Anisocytosis 2+ (NORMAL); Hypochromasia 1+ (NORMAL)
[2023-08-04 20:27] LABS: Albumin Level 3.7 g/dL (3.5-5.1); Alkaline Phosphatase 101 U/L (38-126); Aspartate Amino Transferase 34 U/L (17-59); Bilirubin,Total 0.5 mg/dL (0.2-1.3); Blood Urea Nitrogen 62 mg/dL (9-20); Calcium 8.9 mg/dL (8.4-10.2); Carbon Dioxide < 5 mmol/L (22-30); Chloride 96 mmol/L (98-107); Glucose 128 mg/dL (65-110); Potassium 6.7 mmol/L (3.4-5.0); Sodium 136 mmol/L (137-145)
[2023-08-04 20:34] LABS: Troponin I 0.068 ng/mL (0.000-0.034)
[2023-08-04] MEDS: INSULIN HUMAN REGULAR (*BKC) 100 UNITS/ML 10 UNITS IV PUSH (20:49)
[2023-08-04 20:50] LABS: Appearance Urine Turbid (Clear); Bacteria Urine 4+ /hpf; Bilirubin Urine Negative (Negative); Blood Urine 3+ (Negative); Color Urine Yellow (Yellow); Glucose Urine UA Negative (Negative); Ketones Urine Trace mg/dL (Negative); Leukocyte Esterase Ur 3+ LEU/UL (Negative); Need Manual Microscopic Reviewed; Nitrate Urine Negative (Negative); Non Pathogenic Casts 0-2; Protein Urine 3+ mg/dL (Negative); RBC Urine 21-50 /hpf (0-2); Squamous Epithelial Cell Urine Few /hpf (Few); Urobilinogen Urine 0.2 mg/dL (<2.0); WBC Urine >100 /hpf
[2023-08-04] MEDS: DEXTROSE 50% 25 GM/50 ML SYRINGE IV PUSH (20:50)
[2023-08-04] MEDS: ALBUTEROL SULFATE NEB 2.5 MG/3 ML INH INHALATION (20:50)
[2023-08-04] MEDS: CALCIUM GLUCONATE 1,000 MG/10 ML VIAL 1000 MG IV PUSH (20:50)
[2023-08-04 20:51] LABS: Add Urine Microscopic? YES
[2023-08-04 20:53] LABS: Alanine Aminotransferase 40 U/L (6-50); Estimated Glomerular Filt Rate 7
[2023-08-04 21:03] LABS: D Dimer 2.33 ug/mL (<0.48)
[2023-08-04 21:06] LABS: Glucose Point of Care 112 mg/dl (65-105)
[2023-08-04 21:07] LABS: CRP 30.6 mg/dL (<1.0)
[2023-08-04 21:45] LABS: Influenza A QL RT-PCR Negative (Negative); Influenza B QL RT-PCR Negative (Negative); RSV RNA, RT-PCR Negative (Negative); SARS-CoV-2 RNA PCR Negative (Negative)
[2023-08-04] MEDS: PIPERACILLIN/TAZ 2.25G/NS 50ML 2.25 GM/50 ML BAG IVPB (21:55)
[2023-08-04 22:39] LABS: Reflex Lactic Acid Yes or No Add Lactic
[2023-08-05] VITALS (14 sets, daily range): BP systolic 86–97; BP diastolic 46–60; PULSE 90–118; RESP 24–28; TEMP 36.3–36.7; O2SAT 90–100
[2023-08-05] MEDS: SODIUM CHLORIDE 0.9% IV 500 ML 999 ML IV CONT (00:04)
[2023-08-05 00:28] LABS: Lactic Acid 16.5 mmol/L (0.7-2.0)
[2023-08-05 00:33] LABS: Troponin I 0.061 ng/mL (0.000-0.034)
[2023-08-05] MEDS: PHENYLEPHRINE 1,000 MCG/10 ML SYRINGE 100 MCG IV PUSH (01:38)
== END 2023-08-05 01:40 | disposition short-term general hospital (02) ==
PROVIDERS: Emergency Provider Emergency Medicine
DX: A41.9 Sepsis, unspecified organism (principal); R65.20 Severe sepsis without septic shock; G93.41 Metabolic encephalopathy; N17.9 Acute kidney failure, unspecified; N10 Acute pyelonephritis; E87.5 Hyperkalemia; R09.02 Hypoxemia; Z99.81 Dependence on supplemental oxygen; Z20.822 Contact with and (suspected) exposure to COVID-19; I48.20 Chronic atrial fibrillation, unspecified; I25.10 Atherosclerotic heart disease of native coronary artery without angina pectoris; I10 Essential (primary) hypertension; E78.2 Mixed hyperlipidemia; E11.40 Type 2 diabetes mellitus with diabetic neuropathy, unspecified; E03.9 Hypothyroidism, unspecified; N40.0 Benign prostatic hyperplasia without lower urinary tract symptoms; G47.33 Obstructive sleep apnea (adult) (pediatric); D75.1 Secondary polycythemia; M10.9 Gout, unspecified; Z98.42 Cataract extraction status, left eye; Z98.41 Cataract extraction status, right eye; Z96.653 Presence of artificial knee joint, bilateral; Z95.5 Presence of coronary angioplasty implant and graft; Z86.14 Personal history of Methicillin resistant Staphylococcus aureus infection; Z79.01 Long term (current) use of anticoagulants; Z79.84 Long term (current) use of oral hypoglycemic drugs; Z79.85 Long-term (current) use of injectable non-insulin antidiabetic drugs; I44.0 Atrioventricular block, first degree; I44.4 Left anterior fascicular block; R94.31 Abnormal electrocardiogram [ECG] [EKG]; N13.30 Unspecified hydronephrosis; K80.20 Calculus of gallbladder without cholecystitis without obstruction; K40.20 Bilateral inguinal hernia, without obstruction or gangrene, not specified as recurrent
CPT/HCPCS: 36415; 36600; 71045; 71250; 74176; 80053; 81001; 82805; 82948; 83605; 84484; 85025; 85380; 85610; 85730; 86140; 87040; 87077; 87086; 87186; 87637; 93005; 94640; 96361; 96365; 96366; 96367; 96375; 99291; J0612; J0696; J1815; J2371; J2405; J2543; J3370; J7030; J7040

== ENCOUNTER 2023-08-31 21:58 | Observation (INO) | payer MEDICARE, SELFPAY ==
[2023-08-31] VITALS (9 sets, daily range): BP systolic 125–136; BP diastolic 65–71; PULSE 88–89; RESP 18–20; TEMP 36.1; O2SAT 97–100
--- NOTE | ~2023-08-31 | CT_ITS ---
Non-contrast CT scan of the Abdomen and Pelvis Clinical indication: Abdominal pain, hematuria Technique: 2.5 mm axial scans were obtained through the abdomen and pelvis without intravenous or or al contrast. Dose reduction technique was used on this scan by utilizing automated exposure control a nd iterative reconstruction technique. The dose-length product (DLP) was 1243.76 mGy-cm. COMPARISON: 08/04/2023 Findings: Images through the lung bases reveal no abnormalities. There is mild to moderate bilateral hydroureteronephrosis extending to the urinary bladder. No radiop aque stones identified. The liver, spleen, pancreas, and adrenals appear normal. Gallstones and gallbladder sludge are again present. There are atherosclerotic calcifications of the aorta. There is no evidence of bowel obstruction. Images through the pelvis were performed. There is no evidence of ascites or lymphadenopathy. There i s suggestion of urinary bladder wall thickening and perivesical inflammatory change, with Haile mary ann ter in place. Prostate gland is markedly enlarged. Small bilateral fat-containing inguinal hernias ar e present. Impression: Suspected urinary bladder wall thickening and pericecal inflammatory change suggests cystitis. Mildly enlarged bilateral possible lymph nodes, right worse than left. These could be reactive/inflam matory in nature. Mild to moderate bilateral hydroureteronephrosis, probably related to bladder outlet obstruction due to significantly enlarged prostate gland. Bilateral fat-containing inguinal hernias. Cholelithiasis. There are mildly enlarged bilateral cervical lymph nodes, right worse than left. Reviewed, dictated and finalized at [facility]. IOGRAPHER Impression: Suspected urinary bladder wall thickening and pericecal inflammatory change sug gests cystitis. Mildly enlarged bilateral possible lymph nodes, right worse than left. These co uld be reactive/inflammatory in nature. Mild to moderate bilateral hydroureteronephrosis, probably related to bladder o utlet obstruction due to significantly enlarged prostate gland. Bilateral fat-containing inguinal hernias. Cholelithiasis. There are mildly enlarged bilateral cervical lymph nodes, right worse than left.
[2023-08-31 22:59] LABS: Basophils Absolute Auto 0.1 K/mm3 (0.0-0.1); Basophils Percent Auto 0.7 % (0.2-1.2); Eosinophils Absolute Auto 0.4 K/mm3 (0-0.3); Eosinophils Percent Auto 3.7 % (0-4.4); Hematocrit 34.9 % (42.0-52.0); Hemoglobin 10.9 g/dL (14.0-18.0); Immature Granulocyte Absolute 0.08 K/mm3 (0.00-0.031); Immature Granulocyte Percent A 0.7 % (0-0.5); Lymphocytes Absolute Auto 2.21 K/mm3 (0.9-3.2); Lymphocytes Percent Auto 18.4 % (18.3-44.2); Mean Corpuscular HGB Conc 31.2 g/dl (32-36); Mean Corpuscular Hemoglobin 28.3 pg (26-34); Mean Corpuscular Volume 90.6 fl (80-100); Mean Platelet Volume 10.7 fl (7.4-10.4); Monocytes Percent Auto 8.7 % (2.6-8.5); Neutrophils Absolute Auto 8.1 K/mm3 (1.3-6.7); Neutrophils Percent Auto 67.8 % (45.5-73.1); Platelet Count Result 306 k/mm3 (150-375); Red Blood Count 3.85 M/mm3 (4.6-6.20); Red Cell Distribution Width 16.3 % (11.5-14.5)
[2023-08-31 23:10] LABS: Alanine Aminotransferase 13 U/L (6-50); Albumin Level 4.2 g/dL (3.5-5.1); Alkaline Phosphatase 94 U/L (38-126); Anion Gap 15 mmol/L (8-16); Aspartate Amino Transferase 25 U/L (17-59); Bilirubin,Total 0.7 mg/dL (0.2-1.3); Blood Urea Nitrogen 66 mg/dL (9-20); Calcium 9.6 mg/dL (8.4-10.2); Carbon Dioxide 18 mmol/L (22-30); Chloride 103 mmol/L (98-107); Estimated CRCL calculation 21 ml/min; Estimated Glomerular Filt Rate 17; Glucose 135 mg/dL (65-110); Sodium 136 mmol/L (137-145)
--- NOTE | 2023-08-31 23:16 | PC.NURSE ---
Report received from DONG Alvarez. Assumed care of patient at this time.
[2023-08-31 23:31] LABS: Bacteria Urine None Seen /hpf; Mucus Urine Present /lpf; Need Manual Microscopic Reviewed; Non Pathogenic Casts 0-2; RBC Urine >100 /hpf (0-2); Red Blood Cell Casts Urine Present /lpf; Squamous Epithelial Cell Urine Occasional /hpf (Few); WBC Clumps Urine Present /HPF; WBC Urine >100 /hpf
[2023-08-31 23:32] LABS: Appearance Urine Turbid (Clear); Bilirubin Urine 2+ (Negative); Blood Urine 2+ (Negative); Color Urine Red (Yellow); Glucose Urine UA Negative (Negative); Ketones Urine Negative (Negative); Leukocyte Esterase Ur 3+ LEU/UL (Negative); Nitrate Urine Negative (Negative); Protein Urine 2+ mg/dL (Negative); Specific Grav Ur 1.014 (1.001-1.035); Urobilinogen Urine 0.2 mg/dL (<2.0)
--- NOTE | 2023-08-31 23:34 | ED.MALEGU ---
HPI - Male Genitourinary General Chief complaint: Urogenital-Male <Melody Romero PA-C - Last Filed: 09/01/23 01:55> Stated complaint: blood in estrada <Melody Romero PA-C - Last Filed: 09/01/23 01:55> Time Seen by Provider: 08/31/23 22:12 <Melody Romero PA-C - Last Filed: 09/01/23 01:55> Source: patient and old records reviewed <CALVIN Sinclair Last Filed: 09/01/23 01:55> Mode of arrival: EMS <CALVIN Sinclair Last Filed: 09/01/23 01:55> Limitations: no limitations <CALVIN Sinclair Last Filed: 09/01/23 01:55> History of Present Illness HPI Narrative: Patient is a 68-year-old male who presents the ED via EMS with report of hematuria. Patient is a poor historian. He is a resident of [facility]. Per usp report, patient has had blood in his Estrada for the last couple of days. Patient mentioned to ED nurse that the tubing of his catheter was accidentally tugged on a couple of days ago and he noticed the blood afterwards. Patient does report some discomfort around the Estrada catheter as well as pain in his lower abdomen and lower back. Denies nausea, vomiting, fevers. Per records, patient has history of acute renal failure in July of this year, seen at [facility]. Patient is on Xarelto due to history of atrial fibrillation. <CALVIN Sinclair Last Filed: 09/01/23 01:55> Related Data Home medications: Home Medications Medication Instructions Recorded Confirmed allopurinol 300 mg tablet 300 mg PO HS 11/29/22 11/29/22 amoxicillin 500 mg capsule 500 mg PO BID 11/29/22 11/29/22 ascorbic acid (vitamin C) 500 mg 500 mg PO Q12H 11/29/22 11/29/22 tablet atorvastatin 40 mg tablet 40 mg PO HS 11/29/22 11/29/22 bisacodyl 10 mg rectal suppository 10 mg RECTAL DAILY PRN Constipation 11/29/22 11/29/22 camphor-menthol 0.5 %-0.5 % lotion 1 applic topical BID 11/29/22 11/29/22 (Anti-Itch (menthol-camphor)) cholecalciferol (vitamin D3) 1,250 1,250 mcg PO WEEKLY 11/29/22 11/29/22 mcg (50,000 unit) capsule furosemide 40 mg tablet 40 mg PO 1700 11/29/22 11/29/22 gentamicin 0.1 % topical ointment 1 applic topical DAILY 11/29/22 11/29/22 glucagon HCl 1 mg solution for 1 mg IM Q24H PRN Hypoglycemia 11/29/22 11/29/22 injection (Glucagon (HCl) Emergency Kit) magnesium citrate (Citroma oral 300 ml PO DAILY PRN Constipation 11/29/22 11/29/22 solution) magnesium hydroxide 400 mg/5 mL 30 ml PO HS PRN Constipation 11/29/22 11/29/22 oral suspension (Milk of Magnesia) metformin 1,000 mg tablet 1,000 mg PO BID 11/29/22 11/29/22 miconazole nitrate 2 % topical 1 applic topical TID 11/29/22 11/29/22 cream (Micatin) multivitamin with minerals 1 tablet PO DAILY 11/29/22 11/29/22 polyethylene glycol 3350 17 17 g PO DAILY PRN Constipation 11/29/22 11/29/22 gram/dose oral powder rivaroxaban 20 mg tablet (Xarelto) 20 mg PO 1700 11/29/22 11/29/22 sennosides 8.6 mg-docusate sodium 2 tab-cap PO Q12H PRN Constipation 11/29/22 11/29/22 50 mg tablet (Senna Plus) sodium phosphates 19 gram-7 118 ml RECTAL DAILY PRN 11/29/22 11/29/22 gram/118 mL enema (Fleet Enema) Constipation <Melody Romero PA-C - Last Filed: 09/01/23 01:55> Allergies/Adverse reactions: Allergies Allergy/AdvReac Type Severity Reaction Status Date / Time No Known Allergies Allergy Verified 11/29/22 17:09 <Melody Romero PA-C - Last Filed: 09/01/23 01:55> Review of Systems Review of Systems: CONSTITUTIONAL: Denies fever, chills, or sweats. GASTROINTESTINAL: See HPI. GENITOURINARY: See HPI. SKIN: Denies rash or itching. MUSCULOSKELETAL: See HPI. <Melody Romero PA-C - Last Filed: 09/01/23 01:55> All systems reviewed & are unremarkable except as noted in HPI and below <Melody Romero PA-C - Last Filed: 09/01/23 01:55> PMFSH Past Medical History Medical History:
[2023-08-31 23:36] LABS: Add Urine Microscopic? YES
[2023-08-31] MEDS: SODIUM CHLORIDE 0.9% IV 1,000 ML 999 ML IV CONT (23:38)
[2023-09-01] VITALS (21 sets, daily range): BP systolic 109–144; BP diastolic 63–74; PULSE 80–103; RESP 12–18; TEMP 35.7–36.6; O2SAT 96–100
--- NOTE | 2023-09-01 00:55 | PC.NURSE ---
Patient is tough stick, multiple attempts by 2 RNs and 2 ED techs. Phlebotomy called.
--- NOTE | 2023-09-01 01:26 | PC.NURSE ---
Phlebotomy arrives at bedside.
--- NOTE | 2023-09-01 01:45 | PM.IMHP ---
H&P: HPI History of Present Illness Date/Time: 09/01/23 01:45 Chief Complaint: back pain Narrative: This is a 68-year-old male with past medical history significant for chronic atrial fibrillation, chronic kidney disease, hypertension, diabetes mellitus, left knee affected hardware, patient is a resident at skilled nursing comes in after hematuria noticed in his Haile catheter bag patient has an indwelling chronically Haile catheter. At the time of my visit patient was not able to participate in history taking after receiving pain medication. Patient had Haile catheter replaced in emergency room with drainage of 1000 cc of urine a urinalysis return with numerous WBCs present. Review of Systems Review of Systems: ROS unobtainable: Yes unobtainable due to mental status PMFSH Past Medical History Medical History Benign prostatic hyperplasia Chronic anticoagulation Chronic atrial fibrillation Coronary artery disease Degenerative joint disease Essential (primary) hypertension Gout Hypothyroidism (acquired) Methicillin susceptible Staphylococcus aureus infection Mixed hyperlipidemia Obstructive sleep apnea Does not use CPAP. Polycythemia Type 2 diabetes mellitus with diabetic neuropathy, unspecified Surgical History Surgical History History of arthroscopy of both knees History of bilateral cataract extraction History of bilateral knee replacement History of cardioversion History of carpal tunnel release History of coronary angioplasty with insertion of stent History of revision of total replacement of knee joint Family History Family History Mother Diabetes mellitus Family history of cardiovascular disease Family history of malignant neoplasm of breast in first degree relative Father Patient's father is , Onset Age: 77 Malignant neoplasm of prostate Family history of lung cancer Other Hypertension Social History Social History Social History: Surrogate medical decision maker: Ganesh Gonzales Jr. (son). Code status: Full code. Smoking status: Never smoker Second hand tobacco smoke exposure: Yes Alcohol intake: never Substance use: never Lack of Transportation: No Lack of Food: Never True Current Housing: I Have Housing Concerned About Future Housing: No Difficulty Paying Gas/Electric Bills: No Difficulty Paying for Meds: No Currently Unemployed: No Education: Trade/Vocational Certificate Difficulty w/ Childcare or Family Care: No Additional living arrangements comments: Patient lives in his own home. Brother has been staying with him recently. Additional occupation/education comments: Retired from [employer]. Spiritual care concerns: No Meds Home Medications and Allergies Home Medications Medication Instructions Recorded Confirmed Type blood-glucose meter #1 ea 03/28/21 11/29/22 Rx levothyroxine 100 mcg tablet 100 mcg PO DAILY #90 tabs 06/12/21 11/29/22 Rx metoprolol tartrate 50 mg tablet 25 mg PO Q12H #90 tabs 06/12/21 11/29/22 Rx (Lopressor) blood sugar diagnostic #100 ea 08/29/22 11/29/22 Rx allopurinol 300 mg tablet 300 mg PO HS 11/29/22 11/29/22 History amoxicillin 500 mg capsule 500 mg PO BID 11/29/22 11/29/22 History ascorbic acid (vitamin C) 500 mg 500 mg PO Q12H 11/29/22 11/29/22 History tablet atorvastatin 40 mg tablet 40 mg PO HS 11/29/22 11/29/22 History bisacodyl 10 mg rectal suppository 10 mg RECTAL DAILY PRN Constipation 11/29/22 11/29/22 History camphor-menthol 0.5 %-0.5 % lotion 1 applic topical BID 11/29/22 11/29/22 History (Anti-Itch (menthol-camphor)) cholecalciferol (vitamin D3) 1,250 1,250 mcg PO WEEKLY 11/29/22 11/29/22 History mcg (50,000 unit) capsule furosemide 40 mg tablet 40 mg
--- NOTE | 2023-09-01 02:00 | PC.NURSE ---
Phlebotomy able to get blood cultures. Abx now to be started.
[2023-09-01] MEDS: SODIUM CHLORIDE 0.9% IV 1,000 ML 999 ML IV CONT (02:02)
[2023-09-01] MEDS: SODIUM CHLORIDE 0.9% IV 1,000 ML 100 ML IV CONT ×2 (08:02→17:44)
[2023-09-01] MEDS: ESCITALOPRAM OXALATE 10 MG TABLET PO (08:07)
[2023-09-01] MEDS: METOPROLOL TARTRATE 25 MG TABLET PO ×2 (08:07→20:26)
[2023-09-01] MEDS: LEVOTHYROXINE SODIUM 100 MCG TABLET PO (08:08)
[2023-09-01 09:24] LABS: Glucose Point of Care 107 mg/dl (65-105)
--- NOTE | 2023-09-01 11:12 | PM.IMPN ---
Progress Note: A&P Assessment and Plan (1) UTI (urinary tract infection): Qualifiers: Urinary tract infection type: acute pyelonephritis Qualified Code(s): N10 - Acute pyelonephritis Code(s): N39.0 - Urinary tract infection, site not specified Status: Acute Assessment and Plan: UA: Turbid, 2+ blood, 2+ bilirubin, 3+ leukocyte esterase, greater than 100 RBCs, greater than 100 WBCs, urine white blood cell clumps present and RBC casts present. Patient started on Rocephin Urine culture pending. Adjust antibiotics to culture results. Supportive care (2) Acute kidney injury superimposed on chronic kidney disease: Code(s): N17.9 - Acute kidney failure, unspecified; N18.9 - Chronic kidney disease, unspecified Status: Acute Assessment and Plan: Patient presented with a BUN and creatinine of 66/3.5. In September of 2022 patient's creatinine was 1.6 but in November of 2022 it was 3.6. Unknown of what patient's baseline is. Continue IV fluids. Appears to be TRACY superimposed on CKD. Consider nephrology consult if patient does not improved. (3) Complication, blocked Haile catheter: Qualifiers: Encounter type: initial encounter Qualified Code(s): T83.091A - Other mechanical complication of indwelling urethral catheter, initial encounter Code(s): T83.091A - Other mechanical complication of indwelling urethral catheter, initial encounter Status: Acute Assessment and Plan: Patient had Haile catheter replaced in the ED on 08/31/2023. (4) Type 2 diabetes mellitus: Code(s): E11.9 - Type 2 diabetes mellitus without complications Status: Acute Assessment and Plan: Patient is on metformin Low-dose sliding scale and place. Initiate hypoglycemic protocol. A.c. HS Accu-Cheks (5) Infection of prosthetic left knee joint: Code(s): T84.54XA - Infection and inflammatory reaction due to internal left knee prosthesis, initial encounter Status: Chronic Assessment and Plan: Follow-up in outpatient setting (6) Chronic atrial fibrillation: Code(s): I48.20 - Chronic atrial fibrillation, unspecified Status: Acute Assessment and Plan: Rate controlled Continue Xarelto Subjective Date/time seen: 09/01/23 11:12 Interval history: Patient sitting up in bed eating breakfast in the room. Patient has no complaints and states that he is doing well. He does not have any abdominal pain, nausea, vomiting, chest pain or shortness of breath. He does not have any questions at the time of my visit. Discussed with him that we are waiting urine culture results at this time. Exam Narrative: GENERAL: Comfortable, no acute distress HENMT: moist mucous membranes EYES: EOM intact b/l NECK: no lymphadenopathy RESPIRATORY: clear to auscultation CARDIO: RRR GI: soft, nontender, bowel sounds present : Urinary catheter patent and draining dark yellow urine SKIN: no rashes EXTREMITIES: no edema, redness or tenderness Objective Data Vital Signs Vital Signs: Vital Signs - 24 hr 08/31/23 21:59 08/31/23 22:31 08/31/23 23:00 Temperature 97 F L Pulse Rate 89 88 Respiratory Rate 18 20 Blood Pressure 135/71 136/70 Pulse Oximetry 100 99 97 Oxygen Delivery Room Air 08/31/23 23:01 08/31/23 23:15 08/31/23 23:16 Temperature Pulse Rate Respiratory Rate Blood Pressure 125/69 130/65 Pulse Oximetry 97 98 98 Oxygen Delivery 08/31/23 23:31 08/31/23 23:32 08/31/23 23:56 Temperature Pulse Rate Respiratory Rate Blood Pressure 128/68 Pulse Oximetry 100 98 100 Oxygen Delivery 09/01/23 01:07 09/01/23 01:15 09/01/23 01:16 Temperature Pulse Rate 100 Respiratory Rate 17 Blood Pressure 111/67 Pulse Oximetry 98 98 99 Oxygen Delivery 09/01/23 04:07 09/01/23 01:18 09/01/23 01:31 Temperature Pulse Rate Respirat
[2023-09-01 12:55] LABS: Glucose Point of Care 136 mg/dl (65-105)
[2023-09-01] MEDS: RIVAROXABAN 10 MG TABLET PO (16:33)
[2023-09-01 17:31] LABS: Glucose Point of Care 145 mg/dl (65-105)
[2023-09-01] MEDS: ATORVASTATIN 40 MG TABLET PO (20:26)
[2023-09-02 03:23] VITALS: BP 106/58; PULSE 66; RESP 16; TEMP 36.7; O2SAT 99
[2023-09-02] MEDS: SODIUM CHLORIDE 0.9% IV 1,000 ML 100 ML IV CONT ×2 (04:46→14:31)
[2023-09-02] MEDS: LEVOTHYROXINE SODIUM 100 MCG TABLET PO (06:05)
[2023-09-02 08:16] LABS: Glucose Point of Care 112 mg/dl (65-105)
[2023-09-02 08:34] VITALS: PULSE 68
[2023-09-02] MEDS: ESCITALOPRAM OXALATE 10 MG TABLET PO (08:34)
[2023-09-02] MEDS: ERGOCALCIFEROL 50,000 UNITS CAPSULE 50000 UNITS PO (08:34)
[2023-09-02] MEDS: METOPROLOL TARTRATE 25 MG TABLET PO ×2 (08:34→21:28)
[2023-09-02 08:36] VITALS: RESP 16; O2SAT 99
[2023-09-02 11:49] LABS: Glucose Point of Care 163 mg/dl (65-105)
[2023-09-02 12:01] LABS: Basophils Absolute Auto 0.1 K/mm3 (0.0-0.1); Basophils Percent Auto 1.3 % (0.2-1.2); Eosinophils Absolute Auto 0.3 K/mm3 (0-0.3); Eosinophils Percent Auto 7.1 % (0-4.4); Hematocrit 27.7 % (42.0-52.0); Hemoglobin 8.5 g/dL (14.0-18.0); Immature Granulocyte Absolute 0.03 K/mm3 (0.00-0.031); Immature Granulocyte Percent A 0.7 % (0-0.5); Lymphocytes Absolute Auto 0.65 K/mm3 (0.9-3.2); Lymphocytes Percent Auto 14.5 % (18.3-44.2); Mean Corpuscular HGB Conc 30.7 g/dl (32-36); Mean Corpuscular Hemoglobin 28.5 pg (26-34); Mean Platelet Volume 10.4 fl (7.4-10.4); Monocytes Absolute Auto 0.5 K/mm3 (0.1-0.6); Monocytes Percent Auto 10.7 % (2.6-8.5); Neutrophils Percent Auto 65.7 % (45.5-73.1); Platelet Count Result 197 k/mm3 (150-375); Red Blood Count 2.98 M/mm3 (4.6-6.20); Red Cell Distribution Width 16.1 % (11.5-14.5); White Blood Count 4.5 K/mm3 (4.5-10.0)
[2023-09-02 12:18] LABS: Alanine Aminotransferase 9 U/L (6-50); Albumin Level 3.2 g/dL (3.5-5.1); Alkaline Phosphatase 80 U/L (38-126); Anion Gap 8 mmol/L (8-16); Aspartate Amino Transferase 21 U/L (17-59); Bilirubin,Total 0.4 mg/dL (0.2-1.3); Blood Urea Nitrogen 54 mg/dL (9-20); Calcium 8.5 mg/dL (8.4-10.2); Carbon Dioxide 18 mmol/L (22-30); Chloride 111 mmol/L (98-107); Estimated CRCL calculation 33 ml/min; Estimated Glomerular Filt Rate 30; Glucose 157 mg/dL (65-110); Potassium 4.5 mmol/L (3.4-5.0); Sodium 137 mmol/L (137-145)
--- NOTE | 2023-09-02 12:49 | PM.DS ---
DS: Admitting Diagnosis Discharge Date 09/02/23 Admitting Diagnosis obstructed Haile catheter, UTI DS: Discharge Diagnosis Discharge Diagnosis (1) UTI (urinary tract infection): Qualifiers: Urinary tract infection type: acute pyelonephritis Qualified Code(s): N10 - Acute pyelonephritis Code(s): N39.0 - Urinary tract infection, site not specified Status: Acute Assessment and Plan: UA: Turbid, 2+ blood, 2+ bilirubin, 3+ leukocyte esterase, greater than 100 RBCs, greater than 100 WBCs, urine white blood cell clumps present and RBC casts present. Rocephin discontinued Urine culture no growth Adjust antibiotics to culture results. Supportive care (2) Acute kidney injury superimposed on chronic kidney disease: Code(s): N17.9 - Acute kidney failure, unspecified; N18.9 - Chronic kidney disease, unspecified Status: Acute Assessment and Plan: Patient presented with a BUN and creatinine of 66/3.5. In September of 2022 patient's creatinine was 1.6 but in November of 2022 it was 3.6. Unknown of what patient's baseline is. IV fluids. Appears to be TRACY superimposed on CKD. Consider nephrology consult if patient does not improved. 09/02/23 BUN and creatinine improved to 54/2.2 (3) Complication, blocked Haile catheter: Qualifiers: Encounter type: initial encounter Qualified Code(s): T83.091A - Other mechanical complication of indwelling urethral catheter, initial encounter Code(s): T83.091A - Other mechanical complication of indwelling urethral catheter, initial encounter Status: Acute Assessment and Plan: Patient had Haile catheter replaced in the ED on 08/31/2023. (4) Type 2 diabetes mellitus: Code(s): E11.9 - Type 2 diabetes mellitus without complications Status: Acute Assessment and Plan: Patient is on metformin Low-dose sliding scale and place. Initiate hypoglycemic protocol. A.c. HS Accu-Cheks (5) Infection of prosthetic left knee joint: Code(s): T84.54XA - Infection and inflammatory reaction due to internal left knee prosthesis, initial encounter Status: Chronic Assessment and Plan: Follow-up in outpatient setting (6) Chronic atrial fibrillation: Code(s): I48.20 - Chronic atrial fibrillation, unspecified Status: Acute Assessment and Plan: Rate controlled Continue Xarelto DS: Summary Hospital Course Hospital Course: This is a 68-year-old male with a past medical history of chronic AFib, CKD, hypertension, diabetes, left knee infected hardware that is a resident at nursing present to the ED on 09/01/2023 due to hematuria and his chronic Haile catheter bag. Haile catheter was replaced in the ED and was able to drain 1000 cc. UA showed Turbid, 2+ blood, 2+ bilirubin, 3+ leukocyte esterase, greater than 100 RBCs, greater than 100 WBCs, urine white blood cell clumps present and RBC casts present.? He was also found to have leukocytosis and an elevated BUN and creatinine of 66/3.5. It is unknown what his baseline kidney function is but in past hospitalizations it appeared that creatinine was between 1.6-2.0 he was started on Rocephin and urine cultures were sent off. Urine cultures did come back as no growth and Rocephin was discontinued. Patient refused repeat labs for 2 days and finally on 09/10/2023 he agreed to have his labs drawn. Labs revealed a normal white count and improved BUN and creatinine. TRACY likely due to obstructive uropathy. Patient's Haile catheter is draining yellow urine. Patient states that he is feeling well. Patient is stable and is medically clear for discharge at this time. Advised to follow up with PCP in the next 7-10 days. Time Spent with Patient Time attestation: Total time spent providing and/or coordinating discharge services: Exam Narrative: GENERAL: Comfortable, no acute distress HENMT: moist mu
[2023-09-02 14:00] VITALS: BP 113/57; PULSE 70; RESP 16; TEMP 36.8; O2SAT 100
[2023-09-02 15:54] LABS: SARS-CoV-2 RNA PCR Negative (Negative)
[2023-09-02 17:09] LABS: Glucose Point of Care 207 mg/dl (65-105)
[2023-09-02] MEDS: INSULIN ASPART (*BKC) 100 UNITS/ML SUB-Q (17:12)
[2023-09-02] MEDS: RIVAROXABAN 10 MG TABLET PO (17:12)
[2023-09-02 20:06] VITALS: BP 110/55; PULSE 70; RESP 18; TEMP 36.6; O2SAT 99
[2023-09-02 21:28] VITALS: PULSE 76
[2023-09-02] MEDS: ATORVASTATIN 40 MG TABLET PO (21:28)
== END 2023-09-02 22:55 ==
LOC: ANHED 09-01 01:42 → ANH2MED 09-01 04:16
PROVIDERS: Internal Medicine Critical Care Medicine; Admitting Provider Internal Medicine; Emergency Provider Physician Assistant; PCP Internal Medicine; Visit Provider Family Medicine
DX: N10 Acute pyelonephritis (principal); B95.7 Other staphylococcus as the cause of diseases classified elsewhere; T83.091A Other mechanical complication of indwelling urethral catheter, initial encounter; Y82.9 Unspecified medical devices associated with adverse incidents; N17.9 Acute kidney failure, unspecified; I12.9 Hypertensive chronic kidney disease with stage 1 through stage 4 chronic kidney disease, or unspecified chronic kidney disease; E11.22 Type 2 diabetes mellitus with diabetic chronic kidney disease; N18.9 Chronic kidney disease, unspecified; T84.54XA Infection and inflammatory reaction due to internal left knee prosthesis, initial encounter; I48.20 Chronic atrial fibrillation, unspecified; E11.65 Type 2 diabetes mellitus with hyperglycemia; K59.00 Constipation, unspecified; N40.0 Benign prostatic hyperplasia without lower urinary tract symptoms; I25.10 Atherosclerotic heart disease of native coronary artery without angina pectoris; M10.9 Gout, unspecified; E78.2 Mixed hyperlipidemia; G47.33 Obstructive sleep apnea (adult) (pediatric); D75.1 Secondary polycythemia; E11.42 Type 2 diabetes mellitus with diabetic polyneuropathy; Z86.14 Personal history of Methicillin resistant Staphylococcus aureus infection; Z79.01 Long term (current) use of anticoagulants; Z79.84 Long term (current) use of oral hypoglycemic drugs; Z79.899 Other long term (current) drug therapy; Z83.3 Family history of diabetes mellitus; Z80.42 Family history of malignant neoplasm of prostate
CPT/HCPCS: 36415; 74176; 80053; 81001; 82948; 85025; 87040; 87086; 87147; 87181; 87186; 87635; 96361; 96365; 96366; 99285; A9270; G0378; J0696; J1815; J7030

== ENCOUNTER 2023-10-12 00:30 | Emergency (ER) | payer MEDICARE, SELFPAY ==
[2023-10-12] VITALS (17 sets, daily range): BP systolic 80–110; BP diastolic 50–80; PULSE 70–92; RESP 15–29; TEMP 32.6–33.6; O2SAT 95–100
--- NOTE | ~2023-10-12 | CT_ITS ---
EXAMINATION: CT chest abdomen pelvis wo con DATE: 10/12/2023 02:58 INDICATION: Sepsis TECHNIQUE: Computed tomography (CT) of the chest, abdomen, and pelvis was performed without intraveno us contrast. Automated exposure control and iterative reconstruction technique were employed. Exam do se: 1874.34 mGy-cm total exam DLP. COMPARISON: 10/12/2023 portable AP chest 08/31/2023 CT abdomen pelvis 08/04/2023 CT chest abdomen pelvis FINDINGS: CHEST CT: Examination limited by motion and artifact from the upper extremities alongside the chest. Heart size is within normal range. Is calcification in the area of the aortic valve and mitral valve. Mild thoracic aortic aneurysm. There is aortic and great vessel calcification. No pericardial or pleural effusion. No hilar or mediastinal mass lesion or lymphadenopathy is noted. There is old pulmonary granulomatous disease. There is bilateral predominantly dependent lower lobe atelectasis and lesser bilateral upper lobe dep endent atelectasis. ABDOMEN/PELVIS CT: Examination limited due to artifact from the upper extremities alongside the chest, abdomen and pelvi s. Stones in the contracted gallbladder. No bile duct or pancreatic duct dilatation. No hepatic, pancreatic, splenic, and adrenal or renal space-occupying mass lesion is evident on this limited noncontrast examination. Moderately prominent bilateral hydroureteronephrosis without evidence of urinary tract calculus. As a Haile catheter within the urinary bladder. There is thickening of the urinary bladder wall and promi nent fat stranding around the gallbladder and evidence of some air within the urinary bladder wall, s uggesting emphysematous cystitis. Prominent prostate enlargement. There is atherosclerotic calcification but normal caliber of the abdominal aorta. There is prominent calcification at the origins of the renal arteries. No intraperitoneal or retroperitoneal or pelvic mass lesion or adenopathy or ascites. Normal appendix. No bowel obstruction or intraperitoneal free air. There is a prominent amount of flu id prominent air-fluid level within the stomach. Bilateral fat-containing inguinal hernias and small fat-containing umbilical hernia. Degenerative disc disease in the lower cervical spine. Diffuse idiopathic skeletal hyperostosis of th e thoracic and lumbar spine. No suspicious osteolytic or osteoblastic lesions are noted. IMPRESSION: Limited examination due to motion and overlying upper extremities at the chest, abdomen and pelvis Prominently dependent upper anterior greater extent lower lobe atelectasis Mild thoracic aortic aneurysm Moderately prominent bilateral hydroureteronephrosis, apparently secondary to prostatomegaly Urinary bladder wall thickening and fat stranding around the bladder, with some apparent air in the w all urinary bladder, suggesting emphysematous cystitis Cholelithiasis Reviewed, dictated and finalized at [facility]. Reviewed, dictated and finalized at [facility]. S [employer]ARM [employer]ER IMPRESSION: Limited examination due to motion and overlying upper extremities at the chest, abdomen and pelvis Prominently dependent upper anterior greater extent lower lobe atelectasis Mild thoracic aortic aneurysm Moderately prominent bilateral hydroureteronephrosis, apparently secondary to p rostatomegaly Urinary bladder wall thickening and fat stranding around the bladder, with some apparent air in the wall urinary bladder, suggesting emphysematous cystitis Cholelithiasis
--- NOTE | ~2023-10-12 | XR_ITS ---
XR chest 1V portable DATE: 10/12/2023 01:00 INDICATION: Weakness TECHNIQUE: Portable upright AP chest on 10/12/2023 at 0057 hours COMPARISON: 08/04/2023 CT chest abdomen pelvis 10/12/2023 CT chest abdomen pelvis FINDINGS: Surgical clips are noted in the left supraclavicular area and left axillary region. Normal heart size. There is mild infiltrate and/or atelectasis in the lower lung zones. No hilar or mediastinal enlargement is evident. No pulmonary infiltrate or consolidation, pleural eff usion or pulmonary vascular congestion or pneumothorax is noted otherwise. IMPRESSION: Mild infiltrate or atelectasis in the lower lung zones. Reviewed, dictated and finalized at [facility]. [employer]
--- NOTE | ~2023-10-12 | CT_ITS ---
EXAMINATION: CT brain wo con DATE: 10/12/2023 02:58 INDICATION: Altered mental status TECHNIQUE: Computed tomography (CT) of the head was performed without intravenous contrast. The mA wa s adjusted according to patient size. Iterative reconstruction technique was employed. Exam dose: 68 1.00 mGy-cm total exam DLP. COMPARISON: 10/11/2022 CT brain FINDINGS: Examination is limited due to motion artifact. Moderately prominent central and cortical cerebral atrophy and moderately prominent cerebellar atroph y. Chronic lacunar infarct of left thalamus. There is nonspecific diminished attenuation cerebral white matter, likely due to chronic small vessel ischemic changes. No subdural or epidural hematoma. Included paranasal sinuses and the mastoid air cells are normally developed and aerated. No fracture or bone destruction of the cranial vault. IMPRESSION: Limited examination due to motion artifact Cerebral and cerebellar atrophy Chronic lacunar infarct left thalamus Reviewed, dictated and finalized at [facility]. Reviewed, dictated and finalized at location [facility]. [employer] SUPER[employer]
--- NOTE | ~2023-10-12 | XR_ITS ---
XR abdomen gastric tube insert DATE: 10/12/2023 03:45 INDICATION: NG tube placement TECHNIQUE: Portable AP view on 10/12/2023 at 0326 hours COMPARISON: None FINDINGS: There is an NG tube extending opacity 15 cm into the stomach. Couple calcifications measuring approximately 2.74 mm overlie the right upper quadrant, consistent wi th cholelithiasis noted on the current CT abdomen examination. IMPRESSION: NG tube in stomach Cholelithiasis Reviewed, dictated and finalized at [facility]. Reviewed, dictated and finalized at location [facility]. LEMENTAL MANAGER
--- NOTE | 2023-10-12 00:39 | ECG_ITS ---
Measurements Intervals [place] Rate: 91 P: 267 GA: 254 QRS: -66 QRSD: 134 T: 52 QT: 409 QTc: 503 Interpretive Statements SINUS RHYTHM WITH FIRST DEGREE AV BLOCK LEFT AXIS DEVIATION INTRAVENTRICULAR CONDUCTION DELAY CANNOT RULE OUT SEPTAL INFARCT, AGE INDETERMINATE BASELINE WANDER- I, II, III ,AVR, AVL, AVF, V4-V6 BORDERLINE ECG COMPARED TO ECG 08/04/2023 20:49:36 SINUS RHYTHM NOW PRESENT INTRAVENTRICULAR CONDUCTION DELAY NOW PRESENT Electronically Signed On 10-12-2023 8:05:35 TOP ICER by Remi Jara D.O.
[2023-10-12 01:24] LABS: Basophils Absolute Auto 0.2 K/mm3 (0.0-0.1); Basophils Percent Auto 0.7 % (0.2-1.2); Eosinophils Percent Auto 0.1 % (0-4.4); Hematocrit 38.9 % (42.0-52.0); Hemoglobin 10.9 g/dL (14.0-18.0); Immature Granulocyte Absolute 0.68 K/mm3 (0.00-0.031); Immature Granulocyte Percent A 3.1 % (0-0.5); Lymphocytes Absolute Auto 2.27 K/mm3 (0.9-3.2); Lymphocytes Percent Auto 10.3 % (18.3-44.2); Mean Corpuscular Hemoglobin 27.6 pg (26-34); Mean Corpuscular Volume 98.5 fl (80-100); Mean Platelet Volume 10.8 fl (7.4-10.4); Monocytes Absolute Auto 1.7 K/mm3 (0.1-0.6); Monocytes Percent Auto 7.5 % (2.6-8.5); Neutrophils Absolute Auto 17.3 K/mm3 (1.3-6.7); Neutrophils Percent Auto 78.3 % (45.5-73.1); Platelet Count Result 456 k/mm3 (150-375); Red Blood Count 3.95 M/mm3 (4.6-6.20); Red Cell Distribution Width 15.7 % (11.5-14.5); White Blood Count 22.1 K/mm3 (4.5-10.0)
[2023-10-12 01:40] LABS: Prothrombin Time 23.9 Seconds (11.1-14.7)
[2023-10-12 01:43] LABS: Alveolar/Arterial O2 Gradient < 0.0 mmHg; Base Excess ABG -32.1 mEq/l (+/-2.0); Fractional Inspired Oxygen 21 %; HCO3 ABG 1.6 mEq/l (22.0-26.0); Oxygen Content ABG 17.1 %vol (16.0-22.0); Oxygen Saturation ABG 96.1 % (95.0-100.0); Oxyhemoglobin 96.6 % THb (90.0-100.0); PO2 ABG 147.3 mmHg (80.0-100.0); PO2 FiO2 Ratio Arterial Blood > 0.00 %; Total Hemoglobin 12.4 g/dL (12.0-18.0)
[2023-10-12 01:44] LABS: Platelet Estimate Increased (Adequate)
[2023-10-12 01:44] LABS: PCO2 ABG 11.1 mmHg (35.0-45.0); pH ABG 6.782 (7.350-7.450)
[2023-10-12 01:45] LABS: Modified Allen's Test Pass; Site Drawn RIGHT BRACHIAL
[2023-10-12 01:46] LABS: Anisocytosis 1+ (NORMAL); Burr Cells 1+ (NORMAL); Microcytosis 1+ (NORMAL); Schistocytes None Seen (NORMAL)
[2023-10-12 01:55] LABS: Glucose Point of Care 231 mg/dl (65-105)
[2023-10-12 01:56] LABS: Lactic Acid Reflex 19.1 mmol/L (0.7-2.0)
[2023-10-12 01:57] LABS: Procalcitonin 24.2 ng/mL
[2023-10-12 02:02] LABS: Influenza A QL RT-PCR Negative (Negative); Influenza B QL RT-PCR Negative (Negative); RSV RNA, RT-PCR Negative (Negative); SARS-CoV-2 RNA PCR Negative (Negative)
[2023-10-12] MEDS: DEXTROSE 50% 25 GM/50 ML SYRINGE IV PUSH (02:05)
[2023-10-12] MEDS: INSULIN HUMAN REGULAR (*BKC) 100 UNITS/ML 10 UNITS IV PUSH (02:06)
[2023-10-12 02:09] LABS: Glucose Point of Care 224 mg/dl (65-105)
[2023-10-12] MEDS: SODIUM CHLORIDE 0.9% IV 1,000 ML 999 ML IV CONT ×4 (02:10→06:36)
[2023-10-12] MEDS: CALCIUM GLUCONATE 1,000 MG/10 ML VIAL 1000 MG IV PUSH (02:10)
[2023-10-12] MEDS: SODIUM BICARBONATE 8.4% 50 MEQ/50 ML SYRINGE IV PUSH ×2 (02:10→05:03)
[2023-10-12] MEDS: CEFEPIME 2 GM/NS 50 ML 2 GM/50 ML BAG IVPB (02:17)
[2023-10-12 02:24] LABS: Beta-Hydroxybutyrate/Acetoacetate 3.91 mmol/L (0.02-0.27)
[2023-10-12 02:27] LABS: Bacteria Urine 4+ /hpf; Need Manual Microscopic Reviewed; Non Pathogenic Casts 0-2; RBC Urine >100 /hpf (0-2); Squamous Epithelial Cell Urine Occasional /hpf (Few); WBC Clumps Urine Present /HPF; WBC Urine >100 /hpf
[2023-10-12 02:28] LABS: Appearance Urine Turbid (Clear); Bilirubin Urine Negative (Negative); Blood Urine 3+ (Negative); Color Urine Orange (Yellow); Glucose Urine UA Negative (Negative); Ketones Urine Negative (Negative); Leukocyte Esterase Ur 3+ LEU/UL (Negative); Nitrate Urine Negative (Negative); Protein Urine 3+ mg/dL (Negative); Specific Grav Ur 1.011 (1.001-1.035); Urobilinogen Urine 0.2 mg/dL (<2.0); pH Urine 5.5 (5.0-9.0)
--- NOTE | 2023-10-12 02:36 | PC.NURSE ---
patient to CT
[2023-10-12 02:37] LABS: Add Urine Microscopic? YES
[2023-10-12 02:42] LABS: Alanine Aminotransferase 64 U/L (6-50); Albumin Level 3.8 g/dL (3.5-5.1); Alkaline Phosphatase 98 U/L (38-126); Aspartate Amino Transferase 40 U/L (17-59); Bilirubin,Total 0.5 mg/dL (0.2-1.3); Blood Urea Nitrogen 85 mg/dL (9-20); Calcium 9.1 mg/dL (8.4-10.2); Carbon Dioxide < 5 mmol/L (22-30); Chloride 92 mmol/L (98-107); Estimated CRCL calculation 11 ml/min; Estimated Glomerular Filt Rate 7; Glucose 239 mg/dL (65-110); Magnesium 1.7 mg/dL (1.6-2.3); Potassium 7.3 mmol/L (3.4-5.0); Sodium 132 mmol/L (137-145)
[2023-10-12] MEDS: SODIUM POLYSTYRENE SULFONONATE 15 GM/60 ML BTL 30 GM PO (03:53)
[2023-10-12] MEDS: VANCOMYCIN 1,500 MG/NS 500 ML 1,500 MG/500 ML BAG 250 MG IVPB (04:17)
[2023-10-12 04:19] LABS: Reflex Lactic Acid Yes or No Add Lactic
--- NOTE | 2023-10-12 05:01 | ED.GENADULT ---
HPI - General Adult General Chief complaint: Weakness Stated complaint: altered loc Time Seen by Provider: 10/12/23 00:50 History of Present Illness HPI narrative: patient is a 68-year-old gentleman who presents emergency department with chief complaint of generalized weakness cyanosis low oxygen levels the patient has had chronic infection from infected hardware in his left lower extremity and has also had a UTI with recent hospitalization back in August the patient today has had decreased responsiveness and the facility and notice that at times they were having a difficult time picking up an oxygen level on him. The patient is not able to provide much history at this time as he is very slow to respond. Related Data Home Medications Medication Instructions Recorded Confirmed allopurinol 300 mg tablet 100 mg PO HS 11/29/22 09/01/23 amoxicillin 500 mg capsule 500 mg PO BID 11/29/22 09/01/23 ascorbic acid (vitamin C) 500 mg 500 mg PO Q12H 11/29/22 09/01/23 tablet atorvastatin 40 mg tablet 40 mg PO HS 11/29/22 09/01/23 bisacodyl 10 mg rectal suppository 10 mg RECTAL DAILY PRN Constipation 11/29/22 09/01/23 camphor-menthol 0.5 %-0.5 % lotion 1 applic topical BID 11/29/22 09/01/23 (Anti-Itch (menthol-camphor)) cholecalciferol (vitamin D3) 1,250 1,250 mcg PO WEEKLY 11/29/22 09/01/23 mcg (50,000 unit) capsule glucagon HCl 1 mg solution for 1 mg IM Q24H PRN Hypoglycemia 11/29/22 09/01/23 injection (Glucagon (HCl) Emergency Kit) magnesium citrate (Citroma oral 300 ml PO DAILY PRN Constipation 11/29/22 09/01/23 solution) magnesium hydroxide 400 mg/5 mL 30 ml PO HS PRN Constipation 11/29/22 09/01/23 oral suspension (Milk of Magnesia) metformin 1,000 mg tablet 1,000 mg PO BID 11/29/22 09/01/23 multivitamin with minerals 1 tablet PO DAILY 11/29/22 09/01/23 polyethylene glycol 3350 17 17 g PO DAILY PRN Constipation 11/29/22 09/01/23 gram/dose oral powder rivaroxaban 20 mg tablet (Xarelto) 10 mg PO 1700 11/29/22 09/01/23 sennosides 8.6 mg-docusate sodium 2 tab-cap PO Q12H PRN Constipation 11/29/22 09/01/23 50 mg tablet (Senna Plus) sodium phosphates 19 gram-7 118 ml RECTAL DAILY PRN 11/29/22 09/01/23 gram/118 mL enema (Fleet Enema) Constipation diphenhydramine HCl 50 mg capsule 50 mg PO Q6H PRN Itching 09/01/23 09/01/23 escitalopram oxalate 10 mg tablet 10 mg PO DAILY 09/01/23 09/01/23 oxycodone 5 mg tablet 5 mg PO Q4H PRN Pain (Scale Score 09/01/23 09/01/23 4-6) tramadol 50 mg tablet 50 mg PO Q8H PRN Breakthrough Pain 09/01/23 09/01/23 Allergies Allergy/AdvReac Type Severity Reaction Status Date / Time No Known Allergies Allergy Verified 11/29/22 17:09 Review of Systems Review of Systems: A 10 system review of systems was completed on the patient and is negative except for what is stated in the HPI. Nursing and ancillary documentation was reviewed. [facility] Past Medical History Medical History Benign prostatic hyperplasia Chronic anticoagulation Chronic atrial fibrillation Coronary artery disease Degenerative joint disease Essential (primary) hypertension Gout Hypothyroidism (acquired) Methicillin susceptible Staphylococcus aureus infection Mixed hyperlipidemia Obstructive sleep apnea Does not use CPAP. Polycythemia Type 2 diabetes mellitus with diabetic neuropathy, unspecified Surgical History Surgical History History of arthroscopy of both knees History of bilateral cataract extraction History of bilateral knee replacement History of cardioversion History of carpal tunnel release History of coronary angioplasty with insertion of stent History of revision of total replacement of knee joint Family History Family History Mother Diabetes mellitus Family history of cardiovascular disease Family history
[2023-10-12] MEDS: INSULIN HUMAN REGULAR (*BKC) 100 UNITS in SODIUM CHLORIDE 0.9% IV 99 ML 10 UNITS IV CONT (05:05)
[2023-10-12] MEDS: SODIUM BICARBONATE 8.4% 150 MEQ in DEXTROSE 5% 1,000 ML 950 ML IV CONT (05:07)
[2023-10-12 05:31] LABS: Glucose Point of Care 226 mg/dl (65-105)
[2023-10-12 05:34] LABS: Troponin I 0.064 ng/mL (0.000-0.034)
[2023-10-12 05:41] LABS: Lactic Acid 18.2 mmol/L (0.7-2.0)
--- NOTE | 2023-10-12 06:36 | PC.NURSE ---
EDP aware of hypotension; VORB 1000 mL bolus.
== END 2023-10-12 07:08 | disposition short-term general hospital (02) ==
PROVIDERS: Emergency Provider Emergency Medicine; PCP Internal Medicine
DX: A41.9 Sepsis, unspecified organism (principal); N17.9 Acute kidney failure, unspecified; N10 Acute pyelonephritis; E87.20 Acidosis, unspecified; E87.5 Hyperkalemia; T84.54XA Infection and inflammatory reaction due to internal left knee prosthesis, initial encounter; Y79.2 Prosthetic and other implants, materials and accessory orthopedic devices associated with adverse incidents; Z20.822 Contact with and (suspected) exposure to COVID-19; I48.20 Chronic atrial fibrillation, unspecified; I25.10 Atherosclerotic heart disease of native coronary artery without angina pectoris; I10 Essential (primary) hypertension; E11.40 Type 2 diabetes mellitus with diabetic neuropathy, unspecified; E03.9 Hypothyroidism, unspecified; N40.0 Benign prostatic hyperplasia without lower urinary tract symptoms; M10.9 Gout, unspecified; G47.33 Obstructive sleep apnea (adult) (pediatric); Z96.653 Presence of artificial knee joint, bilateral; Z95.5 Presence of coronary angioplasty implant and graft; Z86.14 Personal history of Methicillin resistant Staphylococcus aureus infection; Z98.42 Cataract extraction status, left eye; Z98.41 Cataract extraction status, right eye; Z79.84 Long term (current) use of oral hypoglycemic drugs; Z79.01 Long term (current) use of anticoagulants; I44.0 Atrioventricular block, first degree; I45.9 Conduction disorder, unspecified; R94.31 Abnormal electrocardiogram [ECG] [EKG]; I71.20 Thoracic aortic aneurysm, without rupture, unspecified; N13.30 Unspecified hydronephrosis; K80.20 Calculus of gallbladder without cholecystitis without obstruction
CPT/HCPCS: 36415; 36600; 70450; 71045; 71250; 74176; 80053; 81001; 82010; 82805; 82948; 83605; 83735; 84145; 84484; 85025; 85610; 85730; 87040; 87077; 87086; 87147; 87181; 87186; 87637; 93005; 96361; 96365; 96366; 96367; 96375; 96376; 99291; A9270; J0612; J0692; J1815; J3370; J7030; J7070